=== PATIENT | male | born 1960 | race Caucasian/White ===

== ENCOUNTER → 2018-05-12 | Outpatient (CLI) | payer OTHER ==
[~2018-05-12] MED LIST: ALBUTEROL2.5 MG/3 M INH; BACTRIM DS TAB1 EACH PO; CEFDINIR300 MG PO; CIPRO500 MG PO; COZAAR 25 MG TA25 M1 PO; DIABETA 5MG TABL5 MG PO; DUONEB 2.5-0.5 M3 ML INH; FLOMAX0.4 MG PO; GLYBURIDE 2.52.5 MG PO; GLYBURIDE 5 MG T5 M1 PO; HYDROCHLOROTHIA25 M2 PO; LEVAQUIN 500 M500 M1 PO; LEVEMIR SUBQ; LORTAB 5-325 M1 EACH PO; LOSARTAN-HCTZ1 EAC1 PO; MUCINEX600 MG PO; PAXIL10 MG; PREDNISONE 20 M20 MG PO; PROTONIX40 M1 PO; PULMICORT0.5 MG/2 M INH; SINGULAIR 10 MG10 M1 PO; SYMBICORT80 MCG/4.1 INH; VANCOMYCIN1.5 GM/253 IV; VENTOLIN HFA 1818 GM INH; ZYVOX600 MG PO
== END ==
LOC: M.WC 08:26
DX: E11.621 Type 2 diabetes mellitus with foot ulcer (principal); L97.521 Non-pressure chronic ulcer of other part of left foot limited to breakdown of skin; L02.416 Cutaneous abscess of left lower limb; E11.36 Type 2 diabetes mellitus with diabetic cataract; E11.65 Type 2 diabetes mellitus with hyperglycemia; I10 Essential (primary) hypertension; L84 Corns and callosities; E66.9 Obesity, unspecified; F17.220 Nicotine dependence, chewing tobacco, uncomplicated; Z68.42 Body mass index [BMI] 45.0-49.9, adult

== ENCOUNTER 2018-05-19 01:51 | Inpatient (IN) | payer OTHER ==
[~2018-05-19] VITALS: Ht 203.2 cm; Wt 188.2 kg
[~2018-05-19 01:51] MED LIST changes: -BACTRIM DS TAB1 EACH PO; -CIPRO500 MG PO; -GLYBURIDE 5 MG T5 M1 PO; -ZYVOX600 MG PO
[2018-05-19 12:15] VITALS: BP 128/68
[2018-05-19 13:59] LABS: HEMATOCRIT 46.6 % (42.0-52.0); HEMOGLOBIN 15.7 gm/dL (14.0-18.0); MCH 32.3 pg (26.0-34.0); MCHC 33.7 g/dL (28.0-37.0); MCV 95.8 fL (80.0-100.0); RBC 4.87 mil/uL (4.50-6.00); RDW-CV 13.5 % (10.5-14.5); WBC 13.4 thou/uL (4.0-11.0)
[2018-05-19 14:11] LABS: CALCIUM 9.4 mg/dL (8.5-10.1); CREATININE 1.3 mg/dL (0.6-1.3); POTASSIUM 4.2 mmol/L (3.5-5.1)
[2018-05-19 14:16] LABS: ALBUMIN 3.1 g/dL (3.4-5.0); TOTAL BILIRUBIN 0.2 mg/dL (<0.1-1.0); TOTAL PROTEIN 7.5 g/dL (6.4-8.2)
--- NOTE | 2018-05-19 14:38 | NUR ---
MET WITH PT TO DISCUSS HOME SITUATION/DC PLANNING. PT LIVES WITH , IS NORMALLY INDEPENDENT AND ACTIVE. HAS NEBULIZER AT HOME. PT STATES HE'S BEEN DEALING WITH THIS WOUND FOR ABOUT A WEEK, HAS HX OF WOUND AND MRSA IN PAST. HAS DONE HOME IV ANTIBX AND IS OPEN TO DOING THAT AGAIN IF NEEDED. USES [facility] FOR HH AND [facility] FOR IV MEDS AND SUPPLIES. CM TO FOLLOW AND ASSIST
[2018-05-19 17:04] VITALS: BP 107/62
[2018-05-19] MEDS ORDERED: GLYBURIDE 5 MG T5 M1 PO (17:37)
[2018-05-19] MEDS ORDERED: BACTRIM DS TAB1 EACH PO (17:40)
[2018-05-19 20:10] VITALS: BP 130/67
[2018-05-20 04:17] LABS: ABSOLUTE BASOPHILS 0.1 thou/uL (0.0-0.2); ABSOLUTE EOSINOPHILS 0.3 thou/uL (0.0-0.7); ABSOLUTE LYMPHOCYTES 2.5 thou/uL (0.8-5.3); ABSOLUTE MONOCYTES 0.6 thou/uL (0.0-1.2); ABSOLUTE NEUTROPHILS 8.8 thou/uL (1.6-8.1); BASOPHILS 0.6 %; EOSINOPHILS 2.5 %; HEMATOCRIT 45.7 % (42.0-52.0); HEMOGLOBIN 15.3 gm/dL (14.0-18.0); LYMPHOCYTES 20.2 %; MCH 32.2 pg (26.0-34.0); MCHC 33.5 g/dL (28.0-37.0); MCV 95.9 fL (80.0-100.0); MONOCYTES 4.9 %; MPV 7.9 fl. (7.2-11.1); NUCLEATED RBCS 0 /100WBC; PLATELET COUNT* 320 thou/uL (150-400); POLYS 71.8 %; RBC 4.76 mil/uL (4.50-6.00); RDW-CV 13.6 % (10.5-14.5); WBC 12.3 thou/uL (4.0-11.0)
[2018-05-20 04:36] LABS: CALCIUM 8.8 mg/dL (8.5-10.1); CREATININE 1.3 mg/dL (0.6-1.3); POTASSIUM 4.5 mmol/L (3.5-5.1)
[2018-05-20 08:00] VITALS: BP 122/60
[2018-05-20 10:03] VITALS: BP 130/67
[2018-05-20 10:37] VITALS: BP 116/80
--- NOTE | 2018-05-20 13:52 | NUR ---
Pt back in room post I&D. Pt to dc with wound vac, no HH needed at this time. Anticipate dc either later tonight or tomorrow d/t nausea. Pt drove himself to the hospital.
[2018-05-20 15:35] VITALS: BP 116/80
[2018-05-20 16:25] VITALS: BP 131/66
[2018-05-20] MEDS ORDERED: ZYVOX600 MG PO (16:33)
[2018-05-20] MEDS ORDERED: CIPRO500 MG PO (16:34)
--- NOTE | 2018-05-20 18:59 | NUR ---
PATIENT A&OX4, ROOM AIR, IV RIGHT FOREARM FLUIDS INFUSSING. UP AD JALEN, STEADY GAIT. PATIENT HAD SURGERY I&D TO BACK OF LEFT THIGH. PATIENT ARRIVED BACK ON FLOOR FROM SURGERY AT 1340 VIA BED. PATIENT WAS ON 3L O2 POST OP, DECREASED BACK TO ROOM AIR. PATIENT NAUSOUS AFTER SURGERY. RELEIF NOTED AT 1430. PATEINT ABLE TO TOLERATE CLEAR LIQUIDS, ADVANCED TO SOLID FOODS. TOLERATING WELL. YUE WOUND VAC TO BACK OF LEFT THIGH, DRSG C/D/I. INSTRUCTED ON HOW TO CHANGED IF NEEDED AND TO FOLLOW UP WITH F/U APTS. NO C/O PAIN. PATIENT DISCHARGED. CALLED IN PRESCRIPTIONS. REVIEWED DISCHARGE, VERBALIZES UNDERSTANDING. ALL QUESTIONS AND CONCERNS ANSWERED. PATIENT LEFT UNIT AT 1850 VIA W/C WITH SPOUSE AND ALL BELONGIGNS, NOTHING LEFT BEHIND. NO OTHER CONCERNS AT THIS TIME. APPROPRIATE AND COOPRATIVE WITH CARE.
[2018-05-20 19:11] LABS: GLYCOHEMOGLOBIN (HGB A1C) 9.9 % (4.8-5.6)
--- NOTE | 2018-05-21 12:23 | OP ---
[facility] [address] [place] [address] OPERATIVE REPORT Name: BOBBY MOORE Room: [address] IN ..#: [id number] Admission: 05/19/18 Attend Phys: Akhil Flynn MD Discharge: 05/20/18 Date of : 60 Report #: [id number] THIS REPORT FOR: //name// CC: Akhil Felder [facility] DATE OF SERVICE: 05/20/2018 PREOPERATIVE DIAGNOSIS: Necrotizing abscess, left posterior thigh. POSTOPERATIVE DIAGNOSIS: Necrotizing abscess, left posterior thigh. OPERATIVE PROCEDURE: 1. Excisional debridement down to subcutaneous and including fat of necrotic skin and fat, dimensions 3 x 2.5 x 1 cm. 2. Application of negative pressure wound therapy device or YUE. ANESTHESIA: Laryngeal mask with 0.5% Marcaine infiltrated into the wound site. DESCRIPTION OF PROCEDURE: The patient was placed under laryngeal mask anesthesia and the patient's left posterior thigh was placed in stirrups and elevated and the site of wound was prepped and draped in a sterile fashion. A timeout was taken. Antibiotics were given. I began by sharply excising the necrotic skin and fat with pickups and a #15 scalpel blade. I dissected into and debrided out necrotic skin and fat and widened the wound dimensions to 3 x 2.5 x 1 cm. I then irrigated the wound with copious amounts of saline. There was no purulence encountered. Tissue was sent for culture. I then after applying cautery to the bleeding sites and pressure, 2 strips of Aquacel sheath that were cut in squares and laid into the wound bed and packed into the wound and then a 4 x 8 negative pressure device YUE was placed under negative pressure sealing the wound ending the operative procedure. Estimated blood loss 10 mL. Sponge, instrument counts correct. Specimen to culture. The patient was taken off laryngeal mask and returned to recovery in stable condition. <ELECTRONICALLY SIGNED> By: Zeenat Greene MD 05/21/18 1223 1224 [id number] Greene MD /nt
--- NOTE | 2018-05-29 14:47 | CON ---
[address] [address] CONSULTATION Name: BOBBY MOORE Room: [address] IN ..#: [id number] Admission: 05/19/18 Attend Phys: Akhil Flynn MD Discharge: 05/20/18 Date of : 60 Report #: [id number] THIS REPORT FOR: //name// CC: Akhil Vannton DATE OF SERVICE: 05/20/2018 INFECTIOUS DISEASE CONSULTATION REASON FOR CONSULTATION: Left thigh wound infection. HISTORY OF PRESENT ILLNESS: The patient is a 57-year-old underlying history of diabetes and morbid obesity, who noted a pustular lesion to his posterior left thigh approximately 2 weeks ago. He expressed purulent material from this. This continued to progress and he was seen in the outpatient clinic on 05/12/2018 where cultures were obtained revealing MRSA and Pseudomonas aeruginosa. He has had a previous history of MRSA furunculosis. No fever, chills or sweats. He does not monitor his blood glucose levels. He is on oral hypoglycemics. No other skin lesions were noted. No fever, chills or sweats. He has persistent pain and the wound progressed in size and he was taken to the operating room today for surgical debridement. At the time of surgery, there was no abscess evident. He had necrotic tissue and fat that was excised and external drainage device was placed. REVIEW OF SYSTEMS: Denies any other skin issues. No weight loss. No cardiopulmonary, GI or complaints. No other neurologic issues. ALLERGIES: MORPHINE AND CODEINE. MEDICATIONS: As noted on his MAR, now on ceftazidime and vancomycin. 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 FAMILY HISTORY: Noncontributory. SOCIAL HISTORY: Past smoker, no significant alcohol intake. PHYSICAL EXAMINATION: VITAL SIGNS: He is afebrile, hemodynamically stable. GENERAL: He is alert and cooperative and pleasant, in no acute distress. HEENT: Unremarkable. Mouth unremarkable. NECK: Supple. He has no adenopathy. [place] [address] CONSULTATION Name: BOBBY MOORE Room: [address]#: [id number] Admission: 05/19/18 Attend Phys: Akhil Flynn MD Discharge: 05/20/18 Date of : 60 Report #: [id number] CHEST: Clear. HEART: Regular without murmur. ABDOMEN: Obese, soft and nontender. No hepatosplenomegaly or mass appreciated. External genitalia unremarkable. EXTREMITIES: Left thigh wound surgical site with an external drainage device in place. No surrounding cellulitis. No significant peripheral edema. NEUROLOGIC: Nonfocal. LABORATORY STUDIES: From 05/12/2018, culture of the wound revealed carbapenem-resistant Pseudomonas aeruginosa 1+ that was otherwise susceptible to all drugs tested except for tetracycline and 4+ MRSA. Vancomycin trough was 13. Blood cultures are negative to date. Hemoglobin 15, WBC 12, platelet count 320,000. Differential unremarkable. Sodium 135, potassium 4.5, creatinine 1.3. Liver function tests normal. Blood glucose was in the 200s. Chest x-ray is clear. IMPRESSION: A 57-year-old with soft tissue infection, left posterior thigh due to methicillin-resistant Staphylococcus aureus. Also, has a component of pseudomonas involvement as well. I do suspect with his history that methicillin-resistant Staphylococcus aureus is a predominant pathogen here. The wound is now packed with a negative pressure device in place. 1. Diabetes. 2. Morbid obesity. 3. Leukocytosis. RECOMMENDATION: We will continue with antibiotic program including Zyvox and ciprofloxacin. The patient will then follow up for further wound care with Dr. Ferguson next week. We will prescribe 10 days of antibiotic therapy leading up to his followup visit. The patient will follow up with Dr. Ornelas for further wound care. Would also repeat CBC and BMP next week. Duration of antibiotics typically would be 7-14 days. Given these organisms, I would lean toward 14 until the wound bed is granulating in nicely and no further significant drainage is evident. <ELECTRONICALLY SIGNED> By: Tim Aguilar MD 05/29/18 1447 1526 [id number] Aguilar MD /nt
--- NOTE | 2018-06-02 17:11 | CON ---
[address] [address] CONSULTATION Name: BOBBY MOORE Room: [address]#: [id number] Admission: 05/19/18 Attend Phys: Akhil Flynn MD Discharge: 05/20/18 Date of : 60 Report #: [id number] THIS REPORT FOR: //name// [facility]: [facility] DATE OF SERVICE: 05/19/2018 CHIEF COMPLAINT: Left leg abscess. HISTORY OF PRESENT ILLNESS: This is a 57-year-old man with morbid obesity who [facility] for a left chronic thigh wound. He was seen at the [facility] today. They noticed that his leg was much more erythematous and there was some induration around his wound. He was therefore sent to be admitted. He has been placed on IV antibiotics. He has continued pain at the site. The pain is sharp, stabbing, burning. PAST MEDICAL HISTORY: Morbid obesity, chronic left thigh wound. PAST SURGICAL HISTORY: He has had incision and drainage of left scrotal abscess. SOCIAL HISTORY: No tobacco or alcohol use. ALLERGIES: MORPHINE AND CODEINE. MEDICATIONS: Include hydrocodone. REVIEW OF SYSTEMS: A 12-point review of systems negative except for listed in HPI. PHYSICAL EXAMINATION: GENERAL: He is awake, alert, in no acute distress. HEENT: Extraocular muscles intact. Sclerae without icterus. NECK: Supple. CARDIOVASCULAR: Regular rate and rhythm. CHEST: Fair movement bilaterally. ABDOMEN: Soft, obese. MUSCULOSKELETAL: Left thigh demonstrates an approximately 2 x 1.5 x 0.5 cm chronic wound. There is slough at the base. It is somewhat indurated. NEUROLOGIC: Grossly intact. SKIN: Without rash or jaundice. ASSESSMENT AND PLAN: A 57-year-old man with a left leg chronic wound. I agree with IV antibiotics. I am going to get an ultrasound to see if there is a deeper abscess. If there is, he [place] [address] CONSULTATION Name: BOBBY MOORE Room: [address] IN ..#: [id number] Admission: 05/19/18 Attend Phys: Akhil Flynn MD Discharge: 05/20/18 Date of : 60 Report #: [id number] Thank you for asking me to consult on this patient. We will follow along with you. <ELECTRONICALLY SIGNED> By: Hever Greene MD 06/02/18 1711 1316 [id number] Greene MD /nt
== END 2018-05-20 18:50 | disposition still patient (30) | DRG 571 ==
LOC: M.WC 01:51 → M.3W 11:56
PROVIDERS: ADMIT Internal Medicine
PROC: 0JBM0ZZ Excision of Left Upper Leg Subcutaneous Tissue and Fascia, Open Approach (ICD-10-PCS; principal; 2018-05-20)
DX: L02.416 Cutaneous abscess of left lower limb (principal); R65.10 Systemic inflammatory response syndrome (SIRS) of non-infectious origin without acute organ dysfunction; Z68.42 Body mass index [BMI] 45.0-49.9, adult; L03.116 Cellulitis of left lower limb; E11.9 Type 2 diabetes mellitus without complications; I10 Essential (primary) hypertension; E66.01 Morbid (severe) obesity due to excess calories; D72.829 Elevated white blood cell count, unspecified; J45.909 Unspecified asthma, uncomplicated; F17.210 Nicotine dependence, cigarettes, uncomplicated; B95.62 Methicillin resistant Staphylococcus aureus infection as the cause of diseases classified elsewhere; Z88.6 Allergy status to analgesic agent

== ENCOUNTER → 2018-05-22 | Outpatient (CLI) | payer OTHER ==
[~2018-05-22] MED LIST changes: +BACTRIM DS TAB1 EACH PO; +CIPRO500 MG PO; +GLYBURIDE 5 MG T5 M1 PO; +ZYVOX600 MG PO
== END ==
LOC: M.WC 13:30
DX: T81.89XA Other complications of procedures, not elsewhere classified, initial encounter (principal); L02.416 Cutaneous abscess of left lower limb; E11.36 Type 2 diabetes mellitus with diabetic cataract; E11.65 Type 2 diabetes mellitus with hyperglycemia; I10 Essential (primary) hypertension; E66.9 Obesity, unspecified; J45.40 Moderate persistent asthma, uncomplicated; F17.210 Nicotine dependence, cigarettes, uncomplicated; Z68.42 Body mass index [BMI] 45.0-49.9, adult; Y92.89 Other specified places as the place of occurrence of the external cause; Y83.8 Other surgical procedures as the cause of abnormal reaction of the patient, or of later complication, without mention of misadventure at the time of the procedure

== ENCOUNTER → 2018-05-24 | Outpatient (CLI) | payer OTHER | LOC: M.WC 11:53 | DX: T81.89XD Other complications of procedures, not elsewhere classified, subsequent encounter (principal); E11.621 Type 2 diabetes mellitus with foot ulcer; L97.521 Non-pressure chronic ulcer of other part of left foot limited to breakdown of skin; E11.36 Type 2 diabetes mellitus with diabetic cataract; L84 Corns and callosities; I10 Essential (primary) hypertension; E66.9 Obesity, unspecified; J45.40 Moderate persistent asthma, uncomplicated; F17.210 Nicotine dependence, cigarettes, uncomplicated; Z68.42 Body mass index [BMI] 45.0-49.9, adult; Y83.8 Other surgical procedures as the cause of abnormal reaction of the patient, or of later complication, without mention of misadventure at the time of the procedure ==

== ENCOUNTER → 2018-05-26 | Outpatient (CLI) | payer OTHER | LOC: M.WC 01:48 | DX: T81.89XD Other complications of procedures, not elsewhere classified, subsequent encounter (principal); E11.621 Type 2 diabetes mellitus with foot ulcer; L97.521 Non-pressure chronic ulcer of other part of left foot limited to breakdown of skin; E11.36 Type 2 diabetes mellitus with diabetic cataract; L84 Corns and callosities; I10 Essential (primary) hypertension; J45.909 Unspecified asthma, uncomplicated; F17.210 Nicotine dependence, cigarettes, uncomplicated; Z68.42 Body mass index [BMI] 45.0-49.9, adult; Y83.8 Other surgical procedures as the cause of abnormal reaction of the patient, or of later complication, without mention of misadventure at the time of the procedure ==

== ENCOUNTER → 2018-05-29 | Outpatient (CLI) | payer OTHER | LOC: M.WC 00:55 | DX: T81.89XD Other complications of procedures, not elsewhere classified, subsequent encounter (principal); E11.36 Type 2 diabetes mellitus with diabetic cataract; I10 Essential (primary) hypertension; E66.9 Obesity, unspecified; J45.40 Moderate persistent asthma, uncomplicated; F17.200 Nicotine dependence, unspecified, uncomplicated; Z68.42 Body mass index [BMI] 45.0-49.9, adult; Y83.8 Other surgical procedures as the cause of abnormal reaction of the patient, or of later complication, without mention of misadventure at the time of the procedure ==

== ENCOUNTER → 2018-05-31 | Outpatient (CLI) | payer OTHER | LOC: M.WC 04:11 | DX: T81.89XD Other complications of procedures, not elsewhere classified, subsequent encounter (principal); E11.36 Type 2 diabetes mellitus with diabetic cataract; I10 Essential (primary) hypertension; E66.9 Obesity, unspecified; J45.909 Unspecified asthma, uncomplicated; F17.200 Nicotine dependence, unspecified, uncomplicated; Z68.42 Body mass index [BMI] 45.0-49.9, adult; Y83.8 Other surgical procedures as the cause of abnormal reaction of the patient, or of later complication, without mention of misadventure at the time of the procedure ==

== ENCOUNTER → 2018-06-02 | Outpatient (CLI) | payer OTHER | LOC: M.WC 01:22 | DX: T81.89XD Other complications of procedures, not elsewhere classified, subsequent encounter (principal); E11.622 Type 2 diabetes mellitus with other skin ulcer; L97.121 Non-pressure chronic ulcer of left thigh limited to breakdown of skin; E11.36 Type 2 diabetes mellitus with diabetic cataract; E11.65 Type 2 diabetes mellitus with hyperglycemia; I10 Essential (primary) hypertension; E66.9 Obesity, unspecified; J45.40 Moderate persistent asthma, uncomplicated; F17.220 Nicotine dependence, chewing tobacco, uncomplicated; Z68.42 Body mass index [BMI] 45.0-49.9, adult; Y83.8 Other surgical procedures as the cause of abnormal reaction of the patient, or of later complication, without mention of misadventure at the time of the procedure ==

== ENCOUNTER → 2018-06-05 | Outpatient (CLI) | payer OTHER | LOC: M.WC 01:02 | DX: T81.89XD Other complications of procedures, not elsewhere classified, subsequent encounter (principal); E11.36 Type 2 diabetes mellitus with diabetic cataract; I10 Essential (primary) hypertension; E66.9 Obesity, unspecified; J45.40 Moderate persistent asthma, uncomplicated; F17.220 Nicotine dependence, chewing tobacco, uncomplicated; F17.200 Nicotine dependence, unspecified, uncomplicated; Y83.8 Other surgical procedures as the cause of abnormal reaction of the patient, or of later complication, without mention of misadventure at the time of the procedure ==

== ENCOUNTER → 2018-06-07 | Outpatient (CLI) | payer OTHER | LOC: M.WC 03:23 | DX: T81.89XD Other complications of procedures, not elsewhere classified, subsequent encounter (principal); E11.36 Type 2 diabetes mellitus with diabetic cataract; I10 Essential (primary) hypertension; E66.9 Obesity, unspecified; J45.909 Unspecified asthma, uncomplicated; F17.220 Nicotine dependence, chewing tobacco, uncomplicated; Z68.42 Body mass index [BMI] 45.0-49.9, adult; Y83.8 Other surgical procedures as the cause of abnormal reaction of the patient, or of later complication, without mention of misadventure at the time of the procedure ==

== ENCOUNTER → 2018-06-09 | Outpatient (CLI) | payer OTHER | LOC: M.WC 02:00 | DX: T81.89XD Other complications of procedures, not elsewhere classified, subsequent encounter (principal); E11.622 Type 2 diabetes mellitus with other skin ulcer; L97.121 Non-pressure chronic ulcer of left thigh limited to breakdown of skin; E11.65 Type 2 diabetes mellitus with hyperglycemia; E11.36 Type 2 diabetes mellitus with diabetic cataract; I10 Essential (primary) hypertension; E66.9 Obesity, unspecified; J45.40 Moderate persistent asthma, uncomplicated; F17.220 Nicotine dependence, chewing tobacco, uncomplicated; Z68.42 Body mass index [BMI] 45.0-49.9, adult; Y83.8 Other surgical procedures as the cause of abnormal reaction of the patient, or of later complication, without mention of misadventure at the time of the procedure ==

== ENCOUNTER → 2018-06-13 | Outpatient (CLI) | payer OTHER | LOC: M.WC 05:11 | DX: T81.89XD Other complications of procedures, not elsewhere classified, subsequent encounter (principal); E11.621 Type 2 diabetes mellitus with foot ulcer; L97.521 Non-pressure chronic ulcer of other part of left foot limited to breakdown of skin; E11.36 Type 2 diabetes mellitus with diabetic cataract; E11.65 Type 2 diabetes mellitus with hyperglycemia; E66.9 Obesity, unspecified; I10 Essential (primary) hypertension; J45.40 Moderate persistent asthma, uncomplicated; F17.220 Nicotine dependence, chewing tobacco, uncomplicated; Z68.42 Body mass index [BMI] 45.0-49.9, adult; Y83.8 Other surgical procedures as the cause of abnormal reaction of the patient, or of later complication, without mention of misadventure at the time of the procedure ==

== ENCOUNTER → 2018-06-16 | Outpatient (CLI) | payer OTHER | LOC: M.WC 03:44 | DX: T81.89XD Other complications of procedures, not elsewhere classified, subsequent encounter (principal); E11.36 Type 2 diabetes mellitus with diabetic cataract; E66.9 Obesity, unspecified; I10 Essential (primary) hypertension; J45.40 Moderate persistent asthma, uncomplicated; F17.220 Nicotine dependence, chewing tobacco, uncomplicated; Z68.42 Body mass index [BMI] 45.0-49.9, adult; Y83.8 Other surgical procedures as the cause of abnormal reaction of the patient, or of later complication, without mention of misadventure at the time of the procedure ==

== ENCOUNTER → 2018-06-23 | Outpatient (CLI) | payer OTHER | LOC: M.WC 02:08 | DX: T81.89XD Other complications of procedures, not elsewhere classified, subsequent encounter (principal); E11.36 Type 2 diabetes mellitus with diabetic cataract; E11.65 Type 2 diabetes mellitus with hyperglycemia; L02.416 Cutaneous abscess of left lower limb; I10 Essential (primary) hypertension; E66.9 Obesity, unspecified; J45.40 Moderate persistent asthma, uncomplicated; F17.220 Nicotine dependence, chewing tobacco, uncomplicated; Z68.42 Body mass index [BMI] 45.0-49.9, adult ==

== ENCOUNTER → 2018-06-30 | Outpatient (CLI) | payer OTHER | LOC: M.WC 11:00 | DX: E11.621 Type 2 diabetes mellitus with foot ulcer (principal); L97.501 Non-pressure chronic ulcer of other part of unspecified foot limited to breakdown of skin; L02.416 Cutaneous abscess of left lower limb; E11.36 Type 2 diabetes mellitus with diabetic cataract; E11.65 Type 2 diabetes mellitus with hyperglycemia; E66.9 Obesity, unspecified; I10 Essential (primary) hypertension; J45.40 Moderate persistent asthma, uncomplicated; F17.220 Nicotine dependence, chewing tobacco, uncomplicated; Z68.42 Body mass index [BMI] 45.0-49.9, adult ==

== ENCOUNTER → 2018-07-05 | Outpatient (CLI) | payer OTHER | LOC: M.WC 03:03 | DX: T81.89XD Other complications of procedures, not elsewhere classified, subsequent encounter (principal); E11.621 Type 2 diabetes mellitus with foot ulcer; L97.501 Non-pressure chronic ulcer of other part of unspecified foot limited to breakdown of skin; L02.416 Cutaneous abscess of left lower limb; E11.36 Type 2 diabetes mellitus with diabetic cataract; E11.65 Type 2 diabetes mellitus with hyperglycemia; E66.9 Obesity, unspecified; I10 Essential (primary) hypertension; J45.20 Mild intermittent asthma, uncomplicated; F17.220 Nicotine dependence, chewing tobacco, uncomplicated; Z68.42 Body mass index [BMI] 45.0-49.9, adult; Y83.8 Other surgical procedures as the cause of abnormal reaction of the patient, or of later complication, without mention of misadventure at the time of the procedure ==

== ENCOUNTER → 2018-07-07 | Outpatient (CLI) | payer OTHER | LOC: M.WC 02:56 | DX: T81.89XD Other complications of procedures, not elsewhere classified, subsequent encounter (principal); E11.621 Type 2 diabetes mellitus with foot ulcer; L97.501 Non-pressure chronic ulcer of other part of unspecified foot limited to breakdown of skin; L02.416 Cutaneous abscess of left lower limb; E11.36 Type 2 diabetes mellitus with diabetic cataract; E11.65 Type 2 diabetes mellitus with hyperglycemia; E66.9 Obesity, unspecified; I10 Essential (primary) hypertension; J45.40 Moderate persistent asthma, uncomplicated; F17.220 Nicotine dependence, chewing tobacco, uncomplicated; Z68.42 Body mass index [BMI] 45.0-49.9, adult; Y83.8 Other surgical procedures as the cause of abnormal reaction of the patient, or of later complication, without mention of misadventure at the time of the procedure ==

== ENCOUNTER → 2018-07-12 | Outpatient (CLI) | payer OTHER | LOC: M.WC 11:00 | DX: T81.89XD Other complications of procedures, not elsewhere classified, subsequent encounter (principal); E11.621 Type 2 diabetes mellitus with foot ulcer; L97.521 Non-pressure chronic ulcer of other part of left foot limited to breakdown of skin; E11.65 Type 2 diabetes mellitus with hyperglycemia; E11.36 Type 2 diabetes mellitus with diabetic cataract; E66.9 Obesity, unspecified; I10 Essential (primary) hypertension; J45.40 Moderate persistent asthma, uncomplicated; F17.220 Nicotine dependence, chewing tobacco, uncomplicated; Z68.42 Body mass index [BMI] 45.0-49.9, adult; Y83.8 Other surgical procedures as the cause of abnormal reaction of the patient, or of later complication, without mention of misadventure at the time of the procedure ==

== ENCOUNTER → 2018-07-21 | Outpatient (CLI) | payer OTHER | LOC: M.WC 11:00 | DX: T81.89XD Other complications of procedures, not elsewhere classified, subsequent encounter (principal); E11.621 Type 2 diabetes mellitus with foot ulcer; L97.521 Non-pressure chronic ulcer of other part of left foot limited to breakdown of skin; E11.36 Type 2 diabetes mellitus with diabetic cataract; E11.65 Type 2 diabetes mellitus with hyperglycemia; E66.9 Obesity, unspecified; I10 Essential (primary) hypertension; J45.40 Moderate persistent asthma, uncomplicated; F17.220 Nicotine dependence, chewing tobacco, uncomplicated; Z68.42 Body mass index [BMI] 45.0-49.9, adult; Y83.8 Other surgical procedures as the cause of abnormal reaction of the patient, or of later complication, without mention of misadventure at the time of the procedure ==

== ENCOUNTER → 2018-07-27 | Outpatient (CLI) | payer OTHER | LOC: M.WC 05:00 | DX: T81.89XD Other complications of procedures, not elsewhere classified, subsequent encounter (principal); E11.36 Type 2 diabetes mellitus with diabetic cataract; E66.9 Obesity, unspecified; E11.65 Type 2 diabetes mellitus with hyperglycemia; I10 Essential (primary) hypertension; J45.40 Moderate persistent asthma, uncomplicated; F17.220 Nicotine dependence, chewing tobacco, uncomplicated; Z68.42 Body mass index [BMI] 45.0-49.9, adult; Y83.8 Other surgical procedures as the cause of abnormal reaction of the patient, or of later complication, without mention of misadventure at the time of the procedure ==

== ENCOUNTER → 2018-07-28 | Outpatient (CLI) | payer OTHER ==
[2018-07-28 10:35] LABS: POTASSIUM 4.4 mmol/L (3.5-5.1)
== END ==
LOC: M.LAB 04:54
PROVIDERS: Anesthesiology
DX: Z01.812 Encounter for preprocedural laboratory examination (principal); E11.9 Type 2 diabetes mellitus without complications; I10 Essential (primary) hypertension

== ENCOUNTER → 2018-08-04 | Outpatient (CLI) | payer OTHER | LOC: M.WC 08-03 11:00 | DX: T81.89XD Other complications of procedures, not elsewhere classified, subsequent encounter (principal); E11.621 Type 2 diabetes mellitus with foot ulcer; L97.521 Non-pressure chronic ulcer of other part of left foot limited to breakdown of skin; E11.65 Type 2 diabetes mellitus with hyperglycemia; E11.36 Type 2 diabetes mellitus with diabetic cataract; E66.9 Obesity, unspecified; I10 Essential (primary) hypertension; J45.40 Moderate persistent asthma, uncomplicated; F17.220 Nicotine dependence, chewing tobacco, uncomplicated; Z68.42 Body mass index [BMI] 45.0-49.9, adult; Y83.8 Other surgical procedures as the cause of abnormal reaction of the patient, or of later complication, without mention of misadventure at the time of the procedure ==

== ENCOUNTER → 2019-10-02 | Outpatient (CLI) | payer OTHER ==
[2019-10-02 09:36] LABS: ABSOLUTE BASOPHILS 0.1 thou/uL (0.0-0.2); ABSOLUTE EOSINOPHILS 0.3 thou/uL (0.0-0.7); ABSOLUTE LYMPHOCYTES 1.9 thou/uL (0.8-5.3); ABSOLUTE MONOCYTES 0.4 thou/uL (0.0-1.2); ABSOLUTE NEUTROPHILS 8.1 thou/uL (1.6-8.1); BASOPHILS 1.1 %; EOSINOPHILS 2.5 %; HEMATOCRIT 46.2 % (42.0-52.0); HEMOGLOBIN 16.1 gm/dL (14.0-18.0); LYMPHOCYTES 17.5 %; MCH 32.7 pg (26.0-34.0); MCHC 34.8 g/dL (28.0-37.0); MCV 94.1 fL (80.0-100.0); MONOCYTES 3.9 %; MPV 7.7 fl. (7.2-11.1); NUCLEATED RBCS 0 /100WBC; PLATELET COUNT* 258 thou/uL (150-400); RBC 4.91 mil/uL (4.50-6.00); RDW-CV 13.4 % (10.5-14.5); WBC 10.8 thou/uL (4.0-11.0)
[2019-10-02 09:56] LABS: CALCIUM 9.1 mg/dL (8.5-10.1); CREATININE 1.3 mg/dL (0.6-1.3); POTASSIUM 4.2 mmol/L (3.5-5.1)
[2019-10-02 10:42] LABS: ESR (SEDRATE) 29 mm/hr (0-20)
[2019-10-03 02:07] LABS: GLYCOHEMOGLOBIN (HGB A1C) 11.8 % (4.8-5.6)
== END ==
LOC: M.WC 07:57
PROVIDERS: Emergency Medicine Undersea and Hyperbaric Medicine
DX: E11.621 Type 2 diabetes mellitus with foot ulcer (principal); L97.511 Non-pressure chronic ulcer of other part of right foot limited to breakdown of skin; L97.522 Non-pressure chronic ulcer of other part of left foot with fat layer exposed; L84 Corns and callosities; E66.9 Obesity, unspecified; E11.36 Type 2 diabetes mellitus with diabetic cataract; I10 Essential (primary) hypertension; J45.909 Unspecified asthma, uncomplicated; F17.200 Nicotine dependence, unspecified, uncomplicated; Z68.42 Body mass index [BMI] 45.0-49.9, adult

== ENCOUNTER → 2019-10-04 | Outpatient (CLI) | payer OTHER | LOC: M.MRI 07:03 | DX: L97.529 Non-pressure chronic ulcer of other part of left foot with unspecified severity (principal) ==

== ENCOUNTER → 2019-10-09 | Outpatient (CLI) | payer OTHER | LOC: M.WC 04:52 | DX: E11.621 Type 2 diabetes mellitus with foot ulcer (principal); L97.522 Non-pressure chronic ulcer of other part of left foot with fat layer exposed; L97.511 Non-pressure chronic ulcer of other part of right foot limited to breakdown of skin; L84 Corns and callosities; E11.36 Type 2 diabetes mellitus with diabetic cataract; E66.9 Obesity, unspecified; I10 Essential (primary) hypertension; J45.909 Unspecified asthma, uncomplicated; F17.200 Nicotine dependence, unspecified, uncomplicated; Z68.42 Body mass index [BMI] 45.0-49.9, adult ==

== ENCOUNTER → 2019-10-16 | Outpatient (CLI) | payer OTHER | LOC: M.WC 05:29 | DX: E11.621 Type 2 diabetes mellitus with foot ulcer (principal); L97.522 Non-pressure chronic ulcer of other part of left foot with fat layer exposed; L97.511 Non-pressure chronic ulcer of other part of right foot limited to breakdown of skin; L84 Corns and callosities; E11.36 Type 2 diabetes mellitus with diabetic cataract; E66.9 Obesity, unspecified; I10 Essential (primary) hypertension; J45.909 Unspecified asthma, uncomplicated; F17.200 Nicotine dependence, unspecified, uncomplicated; Z68.42 Body mass index [BMI] 45.0-49.9, adult ==

== ENCOUNTER → 2019-10-23 | Outpatient (CLI) | payer OTHER | LOC: M.WC 04:32 | DX: E11.621 Type 2 diabetes mellitus with foot ulcer (principal); L97.512 Non-pressure chronic ulcer of other part of right foot with fat layer exposed; L97.522 Non-pressure chronic ulcer of other part of left foot with fat layer exposed; L84 Corns and callosities; I10 Essential (primary) hypertension; E11.36 Type 2 diabetes mellitus with diabetic cataract; J45.909 Unspecified asthma, uncomplicated; E66.9 Obesity, unspecified; F17.290 Nicotine dependence, other tobacco product, uncomplicated; Z68.42 Body mass index [BMI] 45.0-49.9, adult; Z79.84 Long term (current) use of oral hypoglycemic drugs ==

== ENCOUNTER → 2019-10-30 | Outpatient (CLI) | payer OTHER | LOC: M.WC 09:30 | DX: E11.621 Type 2 diabetes mellitus with foot ulcer (principal); L97.512 Non-pressure chronic ulcer of other part of right foot with fat layer exposed; L97.522 Non-pressure chronic ulcer of other part of left foot with fat layer exposed; L84 Corns and callosities; E11.36 Type 2 diabetes mellitus with diabetic cataract; E66.9 Obesity, unspecified; J45.909 Unspecified asthma, uncomplicated; I10 Essential (primary) hypertension; F17.200 Nicotine dependence, unspecified, uncomplicated; Z68.42 Body mass index [BMI] 45.0-49.9, adult ==

== ENCOUNTER → 2019-11-01 | Outpatient (CLI) | payer OTHER ==
[2019-11-01 07:48] LABS: POTASSIUM 4.1 mmol/L (3.5-5.1)
== END ==
LOC: M.LAB 04:02
PROVIDERS: Anesthesiology
DX: E87.6 Hypokalemia (principal)

== ENCOUNTER → 2019-11-06 | Outpatient (CLI) | payer OTHER | LOC: M.WC 02:24 | DX: E11.621 Type 2 diabetes mellitus with foot ulcer (principal); L97.512 Non-pressure chronic ulcer of other part of right foot with fat layer exposed; L97.522 Non-pressure chronic ulcer of other part of left foot with fat layer exposed; L84 Corns and callosities; E11.36 Type 2 diabetes mellitus with diabetic cataract; E66.9 Obesity, unspecified; I10 Essential (primary) hypertension; J45.909 Unspecified asthma, uncomplicated; F17.200 Nicotine dependence, unspecified, uncomplicated; Z68.42 Body mass index [BMI] 45.0-49.9, adult ==

== ENCOUNTER → 2019-11-13 | Outpatient (CLI) | payer OTHER | LOC: M.WC 05:12 | DX: E11.621 Type 2 diabetes mellitus with foot ulcer (principal); L97.512 Non-pressure chronic ulcer of other part of right foot with fat layer exposed; L97.522 Non-pressure chronic ulcer of other part of left foot with fat layer exposed; L84 Corns and callosities; E11.36 Type 2 diabetes mellitus with diabetic cataract; E66.9 Obesity, unspecified; J45.909 Unspecified asthma, uncomplicated; I10 Essential (primary) hypertension; F17.200 Nicotine dependence, unspecified, uncomplicated; Z68.42 Body mass index [BMI] 45.0-49.9, adult ==

== ENCOUNTER → 2019-11-20 | Outpatient (CLI) | payer OTHER | LOC: M.WC 03:36 | DX: E11.621 Type 2 diabetes mellitus with foot ulcer (principal); L97.512 Non-pressure chronic ulcer of other part of right foot with fat layer exposed; L97.522 Non-pressure chronic ulcer of other part of left foot with fat layer exposed; L84 Corns and callosities; E11.36 Type 2 diabetes mellitus with diabetic cataract; E66.9 Obesity, unspecified; J45.909 Unspecified asthma, uncomplicated; I10 Essential (primary) hypertension; F17.200 Nicotine dependence, unspecified, uncomplicated; Z68.42 Body mass index [BMI] 45.0-49.9, adult ==

== ENCOUNTER → 2019-11-27 | Outpatient (CLI) | payer OTHER | LOC: M.WC 05:18 | DX: E11.621 Type 2 diabetes mellitus with foot ulcer (principal); L97.522 Non-pressure chronic ulcer of other part of left foot with fat layer exposed; L97.511 Non-pressure chronic ulcer of other part of right foot limited to breakdown of skin; L84 Corns and callosities; E11.36 Type 2 diabetes mellitus with diabetic cataract; E66.9 Obesity, unspecified; I10 Essential (primary) hypertension; J45.909 Unspecified asthma, uncomplicated; F17.200 Nicotine dependence, unspecified, uncomplicated; Z68.42 Body mass index [BMI] 45.0-49.9, adult ==

== ENCOUNTER → 2019-12-04 | Outpatient (CLI) | payer OTHER | LOC: M.WC 03:18 | DX: E11.621 Type 2 diabetes mellitus with foot ulcer (principal); L97.511 Non-pressure chronic ulcer of other part of right foot limited to breakdown of skin; L97.522 Non-pressure chronic ulcer of other part of left foot with fat layer exposed; L84 Corns and callosities; J45.909 Unspecified asthma, uncomplicated; I10 Essential (primary) hypertension; E11.36 Type 2 diabetes mellitus with diabetic cataract; E66.9 Obesity, unspecified; Z68.42 Body mass index [BMI] 45.0-49.9, adult; Z86.14 Personal history of Methicillin resistant Staphylococcus aureus infection; Z79.84 Long term (current) use of oral hypoglycemic drugs ==

== ENCOUNTER → 2019-12-11 | Outpatient (CLI) | payer OTHER | LOC: M.WC 04:35 | DX: E11.621 Type 2 diabetes mellitus with foot ulcer (principal); L97.512 Non-pressure chronic ulcer of other part of right foot with fat layer exposed; L97.522 Non-pressure chronic ulcer of other part of left foot with fat layer exposed; L84 Corns and callosities; E11.36 Type 2 diabetes mellitus with diabetic cataract; E66.9 Obesity, unspecified; I10 Essential (primary) hypertension; J45.909 Unspecified asthma, uncomplicated; F17.200 Nicotine dependence, unspecified, uncomplicated; Z68.42 Body mass index [BMI] 45.0-49.9, adult ==

== ENCOUNTER → 2019-12-18 | Outpatient (CLI) | payer OTHER | LOC: M.WC 03:56 | DX: E11.621 Type 2 diabetes mellitus with foot ulcer (principal); L97.511 Non-pressure chronic ulcer of other part of right foot limited to breakdown of skin; L97.522 Non-pressure chronic ulcer of other part of left foot with fat layer exposed; L84 Corns and callosities; F17.200 Nicotine dependence, unspecified, uncomplicated ==

== ENCOUNTER → 2019-12-25 | Outpatient (CLI) | payer OTHER | LOC: M.WC 04:28 | DX: E11.621 Type 2 diabetes mellitus with foot ulcer (principal); L97.511 Non-pressure chronic ulcer of other part of right foot limited to breakdown of skin; L97.522 Non-pressure chronic ulcer of other part of left foot with fat layer exposed; L84 Corns and callosities; E11.36 Type 2 diabetes mellitus with diabetic cataract; E66.9 Obesity, unspecified; J45.909 Unspecified asthma, uncomplicated; I10 Essential (primary) hypertension; F17.200 Nicotine dependence, unspecified, uncomplicated; Z68.42 Body mass index [BMI] 45.0-49.9, adult ==

== ENCOUNTER → 2020-01-01 | Outpatient (CLI) | payer OTHER | LOC: M.WC 04:38 | DX: E11.621 Type 2 diabetes mellitus with foot ulcer (principal); L97.522 Non-pressure chronic ulcer of other part of left foot with fat layer exposed; L97.511 Non-pressure chronic ulcer of other part of right foot limited to breakdown of skin; L84 Corns and callosities; E11.36 Type 2 diabetes mellitus with diabetic cataract; E66.9 Obesity, unspecified; I10 Essential (primary) hypertension; J45.909 Unspecified asthma, uncomplicated; F17.200 Nicotine dependence, unspecified, uncomplicated; Z68.42 Body mass index [BMI] 45.0-49.9, adult ==

== ENCOUNTER → 2020-01-08 | Outpatient (CLI) | payer OTHER | LOC: M.WC 03:48 | DX: E11.621 Type 2 diabetes mellitus with foot ulcer (principal); L97.522 Non-pressure chronic ulcer of other part of left foot with fat layer exposed; L97.511 Non-pressure chronic ulcer of other part of right foot limited to breakdown of skin; L84 Corns and callosities; E11.36 Type 2 diabetes mellitus with diabetic cataract; E66.9 Obesity, unspecified; I10 Essential (primary) hypertension; J45.909 Unspecified asthma, uncomplicated; F17.200 Nicotine dependence, unspecified, uncomplicated; Z68.42 Body mass index [BMI] 45.0-49.9, adult ==

== ENCOUNTER → 2020-01-15 | Outpatient (CLI) | payer OTHER | LOC: M.WC 04:23 | DX: E11.621 Type 2 diabetes mellitus with foot ulcer (principal); L97.522 Non-pressure chronic ulcer of other part of left foot with fat layer exposed; L97.511 Non-pressure chronic ulcer of other part of right foot limited to breakdown of skin; L84 Corns and callosities; E11.36 Type 2 diabetes mellitus with diabetic cataract; E66.9 Obesity, unspecified; I10 Essential (primary) hypertension; J45.909 Unspecified asthma, uncomplicated; F17.200 Nicotine dependence, unspecified, uncomplicated; Z68.42 Body mass index [BMI] 45.0-49.9, adult ==

== ENCOUNTER → 2020-01-22 | Outpatient (CLI) | payer OTHER | LOC: M.WC 04:42 | DX: E11.621 Type 2 diabetes mellitus with foot ulcer (principal); L97.522 Non-pressure chronic ulcer of other part of left foot with fat layer exposed; L97.511 Non-pressure chronic ulcer of other part of right foot limited to breakdown of skin; L84 Corns and callosities; E11.36 Type 2 diabetes mellitus with diabetic cataract; E66.9 Obesity, unspecified; I10 Essential (primary) hypertension; J45.909 Unspecified asthma, uncomplicated; F17.200 Nicotine dependence, unspecified, uncomplicated; Z68.42 Body mass index [BMI] 45.0-49.9, adult ==

== ENCOUNTER → 2020-01-29 | Outpatient (CLI) | payer OTHER | LOC: M.WC 04:52 | DX: E11.621 Type 2 diabetes mellitus with foot ulcer (principal); L97.522 Non-pressure chronic ulcer of other part of left foot with fat layer exposed; L97.511 Non-pressure chronic ulcer of other part of right foot limited to breakdown of skin; L84 Corns and callosities; E11.36 Type 2 diabetes mellitus with diabetic cataract; E66.9 Obesity, unspecified; I10 Essential (primary) hypertension; J45.909 Unspecified asthma, uncomplicated; F17.200 Nicotine dependence, unspecified, uncomplicated ==

== ENCOUNTER → 2020-02-05 | Outpatient (CLI) | payer OTHER | LOC: M.WC 01:37 | DX: E11.621 Type 2 diabetes mellitus with foot ulcer (principal); L97.522 Non-pressure chronic ulcer of other part of left foot with fat layer exposed; L97.511 Non-pressure chronic ulcer of other part of right foot limited to breakdown of skin; L84 Corns and callosities; E11.36 Type 2 diabetes mellitus with diabetic cataract; E66.9 Obesity, unspecified; I10 Essential (primary) hypertension; J45.909 Unspecified asthma, uncomplicated; F17.200 Nicotine dependence, unspecified, uncomplicated; Z68.42 Body mass index [BMI] 45.0-49.9, adult ==

== ENCOUNTER → 2020-02-12 | Outpatient (CLI) | payer OTHER | LOC: M.WC 04:25 | DX: E11.621 Type 2 diabetes mellitus with foot ulcer (principal); L97.511 Non-pressure chronic ulcer of other part of right foot limited to breakdown of skin; L97.522 Non-pressure chronic ulcer of other part of left foot with fat layer exposed; L84 Corns and callosities; E11.36 Type 2 diabetes mellitus with diabetic cataract; E66.9 Obesity, unspecified; I10 Essential (primary) hypertension; J45.909 Unspecified asthma, uncomplicated; F17.200 Nicotine dependence, unspecified, uncomplicated; Z68.42 Body mass index [BMI] 45.0-49.9, adult ==

== ENCOUNTER → 2020-02-19 | Outpatient (CLI) | payer OTHER | LOC: M.WC 04:32 | DX: E11.621 Type 2 diabetes mellitus with foot ulcer (principal); L97.522 Non-pressure chronic ulcer of other part of left foot with fat layer exposed; L97.511 Non-pressure chronic ulcer of other part of right foot limited to breakdown of skin; L84 Corns and callosities; E11.36 Type 2 diabetes mellitus with diabetic cataract; E66.9 Obesity, unspecified; I10 Essential (primary) hypertension; J45.909 Unspecified asthma, uncomplicated; F17.200 Nicotine dependence, unspecified, uncomplicated; Z68.42 Body mass index [BMI] 45.0-49.9, adult ==

== ENCOUNTER → 2020-02-26 | Outpatient (CLI) | payer OTHER | LOC: M.WC 03:06 | DX: E11.621 Type 2 diabetes mellitus with foot ulcer (principal); L97.522 Non-pressure chronic ulcer of other part of left foot with fat layer exposed; L97.511 Non-pressure chronic ulcer of other part of right foot limited to breakdown of skin; L84 Corns and callosities; E11.36 Type 2 diabetes mellitus with diabetic cataract; E66.9 Obesity, unspecified; I10 Essential (primary) hypertension; J45.909 Unspecified asthma, uncomplicated; F17.200 Nicotine dependence, unspecified, uncomplicated; Z68.42 Body mass index [BMI] 45.0-49.9, adult ==

== ENCOUNTER → 2020-03-04 | Outpatient (CLI) | payer OTHER | LOC: M.WC 05:20 | DX: E11.621 Type 2 diabetes mellitus with foot ulcer (principal); L97.522 Non-pressure chronic ulcer of other part of left foot with fat layer exposed; L97.511 Non-pressure chronic ulcer of other part of right foot limited to breakdown of skin; L84 Corns and callosities; E11.36 Type 2 diabetes mellitus with diabetic cataract; E66.9 Obesity, unspecified; I10 Essential (primary) hypertension; J45.909 Unspecified asthma, uncomplicated; F17.200 Nicotine dependence, unspecified, uncomplicated; Z68.42 Body mass index [BMI] 45.0-49.9, adult ==

== ENCOUNTER → 2020-03-11 | Outpatient (CLI) | payer OTHER | LOC: M.WC 04:54 | DX: E11.621 Type 2 diabetes mellitus with foot ulcer (principal); L97.522 Non-pressure chronic ulcer of other part of left foot with fat layer exposed; L97.511 Non-pressure chronic ulcer of other part of right foot limited to breakdown of skin; L84 Corns and callosities; E11.36 Type 2 diabetes mellitus with diabetic cataract; E66.9 Obesity, unspecified; I10 Essential (primary) hypertension; J45.909 Unspecified asthma, uncomplicated; F17.200 Nicotine dependence, unspecified, uncomplicated; Z68.42 Body mass index [BMI] 45.0-49.9, adult ==

== ENCOUNTER → 2020-03-18 | Outpatient (CLI) | payer OTHER | LOC: M.WC 04:15 | DX: E11.621 Type 2 diabetes mellitus with foot ulcer (principal); L97.522 Non-pressure chronic ulcer of other part of left foot with fat layer exposed; L97.511 Non-pressure chronic ulcer of other part of right foot limited to breakdown of skin; L84 Corns and callosities; J45.909 Unspecified asthma, uncomplicated; I10 Essential (primary) hypertension; E11.36 Type 2 diabetes mellitus with diabetic cataract; E66.9 Obesity, unspecified; F17.290 Nicotine dependence, other tobacco product, uncomplicated; Z86.14 Personal history of Methicillin resistant Staphylococcus aureus infection; Z79.84 Long term (current) use of oral hypoglycemic drugs; Z68.42 Body mass index [BMI] 45.0-49.9, adult ==

== ENCOUNTER → 2020-03-25 | Outpatient (CLI) | payer OTHER | LOC: M.WC 04:45 | DX: E11.621 Type 2 diabetes mellitus with foot ulcer (principal); L97.522 Non-pressure chronic ulcer of other part of left foot with fat layer exposed; L97.511 Non-pressure chronic ulcer of other part of right foot limited to breakdown of skin; L84 Corns and callosities; E11.36 Type 2 diabetes mellitus with diabetic cataract; E66.9 Obesity, unspecified; I10 Essential (primary) hypertension; J45.909 Unspecified asthma, uncomplicated; F17.200 Nicotine dependence, unspecified, uncomplicated; Z68.42 Body mass index [BMI] 45.0-49.9, adult ==

== ENCOUNTER → 2020-04-01 | Outpatient (CLI) | payer OTHER | LOC: M.WC 10:50 | PROVIDERS: ATTEND Emergency Medicine Undersea and Hyperbaric Medicine | DX: E11.621 Type 2 diabetes mellitus with foot ulcer (principal); L97.522 Non-pressure chronic ulcer of other part of left foot with fat layer exposed; L97.511 Non-pressure chronic ulcer of other part of right foot limited to breakdown of skin; L84 Corns and callosities; E11.36 Type 2 diabetes mellitus with diabetic cataract; E66.9 Obesity, unspecified; J45.909 Unspecified asthma, uncomplicated; I10 Essential (primary) hypertension; F17.200 Nicotine dependence, unspecified, uncomplicated; Z68.42 Body mass index [BMI] 45.0-49.9, adult ==

== ENCOUNTER → 2020-04-08 | Outpatient (CLI) | payer OTHER | LOC: M.WC 03:53 | PROVIDERS: ATTEND Emergency Medicine Undersea and Hyperbaric Medicine | DX: E11.621 Type 2 diabetes mellitus with foot ulcer (principal); L97.522 Non-pressure chronic ulcer of other part of left foot with fat layer exposed; L97.511 Non-pressure chronic ulcer of other part of right foot limited to breakdown of skin; L84 Corns and callosities; E11.36 Type 2 diabetes mellitus with diabetic cataract; E66.9 Obesity, unspecified; I10 Essential (primary) hypertension; J45.909 Unspecified asthma, uncomplicated; F17.200 Nicotine dependence, unspecified, uncomplicated; Z68.42 Body mass index [BMI] 45.0-49.9, adult ==

== ENCOUNTER → 2020-04-15 | Outpatient (CLI) | payer OTHER | LOC: M.WC 04:58 | PROVIDERS: ATTEND Emergency Medicine Undersea and Hyperbaric Medicine | DX: E11.621 Type 2 diabetes mellitus with foot ulcer (principal); L97.511 Non-pressure chronic ulcer of other part of right foot limited to breakdown of skin; L97.522 Non-pressure chronic ulcer of other part of left foot with fat layer exposed; L84 Corns and callosities; E11.36 Type 2 diabetes mellitus with diabetic cataract; E66.9 Obesity, unspecified; I10 Essential (primary) hypertension; J45.909 Unspecified asthma, uncomplicated; F17.200 Nicotine dependence, unspecified, uncomplicated; Z68.42 Body mass index [BMI] 45.0-49.9, adult ==

== ENCOUNTER → 2020-04-22 | Outpatient (CLI) | payer OTHER | LOC: M.WC 04:28 | PROVIDERS: ATTEND Emergency Medicine Undersea and Hyperbaric Medicine | DX: E11.621 Type 2 diabetes mellitus with foot ulcer (principal); L97.528 Non-pressure chronic ulcer of other part of left foot with other specified severity; L84 Corns and callosities; E11.36 Type 2 diabetes mellitus with diabetic cataract; E66.9 Obesity, unspecified; I10 Essential (primary) hypertension; J45.909 Unspecified asthma, uncomplicated; F17.200 Nicotine dependence, unspecified, uncomplicated; Z68.42 Body mass index [BMI] 45.0-49.9, adult ==

== ENCOUNTER → 2020-04-29 | Outpatient (CLI) | payer OTHER | LOC: M.WC 04:05 | PROVIDERS: ATTEND Emergency Medicine Undersea and Hyperbaric Medicine | DX: E11.621 Type 2 diabetes mellitus with foot ulcer (principal); L97.511 Non-pressure chronic ulcer of other part of right foot limited to breakdown of skin; L97.522 Non-pressure chronic ulcer of other part of left foot with fat layer exposed; E11.36 Type 2 diabetes mellitus with diabetic cataract; E66.9 Obesity, unspecified; I10 Essential (primary) hypertension; J45.909 Unspecified asthma, uncomplicated; F17.200 Nicotine dependence, unspecified, uncomplicated; Z68.42 Body mass index [BMI] 45.0-49.9, adult ==

== ENCOUNTER → 2020-05-06 | Outpatient (CLI) | payer OTHER | LOC: M.WC 04:29 | PROVIDERS: ATTEND Emergency Medicine Undersea and Hyperbaric Medicine | DX: E11.621 Type 2 diabetes mellitus with foot ulcer (principal); L97.511 Non-pressure chronic ulcer of other part of right foot limited to breakdown of skin; L97.522 Non-pressure chronic ulcer of other part of left foot with fat layer exposed; E11.36 Type 2 diabetes mellitus with diabetic cataract; E66.9 Obesity, unspecified; I10 Essential (primary) hypertension; J45.909 Unspecified asthma, uncomplicated; F17.200 Nicotine dependence, unspecified, uncomplicated; Z68.42 Body mass index [BMI] 45.0-49.9, adult ==

== ENCOUNTER → 2020-05-20 | Outpatient (CLI) | payer OTHER | LOC: M.WC 13:18 | PROVIDERS: ATTEND Emergency Medicine Undersea and Hyperbaric Medicine | DX: E11.621 Type 2 diabetes mellitus with foot ulcer (principal); L97.522 Non-pressure chronic ulcer of other part of left foot with fat layer exposed; E11.36 Type 2 diabetes mellitus with diabetic cataract; L84 Corns and callosities; E66.9 Obesity, unspecified; I10 Essential (primary) hypertension; J45.909 Unspecified asthma, uncomplicated; F17.200 Nicotine dependence, unspecified, uncomplicated; Z68.42 Body mass index [BMI] 45.0-49.9, adult ==

== ENCOUNTER → 2020-05-27 | Outpatient (CLI) | payer OTHER ==
[~2020-05-27] MED LIST changes: +CIPROFLOXIN HC2.5 M1 OPHTHALMIC; +KEFLEX500 M1 PO; +LOSARTAN POTAS100 MG PO; +ONGLYZA5 MG PO; +SYMBICORT160 MCG/4. INH
== END ==
LOC: M.MRI 02:25
PROVIDERS: ATTEND Emergency Medicine Undersea and Hyperbaric Medicine
DX: E11.621 Type 2 diabetes mellitus with foot ulcer (principal); L97.529 Non-pressure chronic ulcer of other part of left foot with unspecified severity

== ENCOUNTER → 2020-06-03 | Outpatient (CLI) | payer OTHER ==
[~2020-06-03] MED LIST changes: -CIPROFLOXIN HC2.5 M1 OPHTHALMIC; -KEFLEX500 M1 PO; -LOSARTAN POTAS100 MG PO; -ONGLYZA5 MG PO; -SYMBICORT160 MCG/4. INH
== END ==
LOC: M.WC 05:31
PROVIDERS: ATTEND Emergency Medicine Undersea and Hyperbaric Medicine
DX: E11.621 Type 2 diabetes mellitus with foot ulcer (principal); L97.522 Non-pressure chronic ulcer of other part of left foot with fat layer exposed; L84 Corns and callosities; J45.909 Unspecified asthma, uncomplicated; I10 Essential (primary) hypertension; E11.36 Type 2 diabetes mellitus with diabetic cataract; E66.9 Obesity, unspecified; F17.200 Nicotine dependence, unspecified, uncomplicated; Z68.42 Body mass index [BMI] 45.0-49.9, adult

== ENCOUNTER → 2020-06-10 | Outpatient (CLI) | payer OTHER | LOC: M.WC 03:17 | PROVIDERS: ATTEND Emergency Medicine Undersea and Hyperbaric Medicine | DX: E11.621 Type 2 diabetes mellitus with foot ulcer (principal); L97.511 Non-pressure chronic ulcer of other part of right foot limited to breakdown of skin; L97.522 Non-pressure chronic ulcer of other part of left foot with fat layer exposed; L84 Corns and callosities; E11.36 Type 2 diabetes mellitus with diabetic cataract; E66.9 Obesity, unspecified; I10 Essential (primary) hypertension; J45.909 Unspecified asthma, uncomplicated; F17.200 Nicotine dependence, unspecified, uncomplicated; Z68.42 Body mass index [BMI] 45.0-49.9, adult ==

== ENCOUNTER → 2020-06-17 | Outpatient (CLI) | payer OTHER | LOC: M.WC 04:20 | PROVIDERS: ATTEND Emergency Medicine Undersea and Hyperbaric Medicine | DX: E11.621 Type 2 diabetes mellitus with foot ulcer (principal); L97.511 Non-pressure chronic ulcer of other part of right foot limited to breakdown of skin; L97.522 Non-pressure chronic ulcer of other part of left foot with fat layer exposed; E11.36 Type 2 diabetes mellitus with diabetic cataract; E66.9 Obesity, unspecified; I10 Essential (primary) hypertension; J45.909 Unspecified asthma, uncomplicated; F17.200 Nicotine dependence, unspecified, uncomplicated; Z68.42 Body mass index [BMI] 45.0-49.9, adult ==

== ENCOUNTER 2020-06-23 16:38 | Emergency (ER) | payer OTHER ==
[~2020-06-23] VITALS: Ht 203.2 cm; Wt 173.3 kg
[2020-06-23] MEDS ORDERED: ONGLYZA5 MG PO (16:54)
[2020-06-23 17:48] LABS: HEMATOCRIT 47.8 % (42.0-52.0); HEMOGLOBIN 17.1 gm/dL (14.0-18.0); MCH 33.2 pg (26.0-34.0); MCHC 35.7 g/dL (28.0-37.0); MCV 93.2 fL (80.0-100.0); MPV 8.4 fl. (7.2-11.1); NUCLEATED RBCS 0 /100WBC; PLATELET COUNT* 166 thou/uL (150-400); RBC 5.13 mil/uL (4.50-6.00); RDW-CV 14.1 % (10.5-14.5); WBC 10.2 thou/uL (4.0-11.0)
[2020-06-23 17:51] LABS: CALCIUM 8.3 mg/dL (8.5-10.1); CREATININE 1.8 mg/dL (0.6-1.3); POTASSIUM 3.5 mmol/L (3.5-5.1)
[2020-06-23 17:56] LABS: TOTAL BILIRUBIN 0.7 mg/dL (<0.1-1.0); TOTAL PROTEIN 7.1 g/dL (6.4-8.2); URIC ACID* 7.5 mg/dL (2.6-7.2)
[2020-06-23 18:16] LABS: ABSOLUTE BASOPHILS 0.1 thou/uL (0.0-0.2); ABSOLUTE EOSINOPHILS 0.1 thou/uL (0.0-0.7); ABSOLUTE LYMPHOCYTES 0.9 thou/uL (0.8-5.3); ABSOLUTE MONOCYTES 0.4 thou/uL (0.0-1.2); ABSOLUTE NEUTROPHILS 8.7 thou/uL (1.6-8.1)
[2020-06-23 18:17] LABS: PLATELET ESTIMATE ADEQUATE
[2020-06-23 18:53] LABS: ESR (SEDRATE) 20 mm/hr (0-20)
[2020-06-23] MEDS ORDERED: KEFLEX500 M1 PO (19:16)
[2020-06-23 19:31] VITALS: BP 109/67
--- NOTE | 2020-06-24 16:23 | EKG ---
[place] [address] ELECTROCARDIOGRAM REPORT Name: BOBBY MOORE Room: [facility]#: [id number] Admission: 06/23/20 Attend Phys: Discharge: 06/23/20 Date of : 60 Date of Service: 06/23/20 1725 Report #: [id number] THIS REPORT FOR: //name// [facility] ED Test Date: 2020-06-23 Test Time: 17:25:34 Pat Name: BOBBY MOORE Department: Room: Gender: Android Platform Developer: [place] : 1960 Requested By: Lázaro Mathis Order Number: [id number] Moise MD: Nacho Up Measurements Intervals [place] Rate: 78 P: 70 MD: 174 QRS: 62 QRSD: 103 T: 50 QT: 395 QTc: 450 Interpretive Statements Sinus rhythm Left atrial enlargement Baseline wander in lead(s) V5,V6 Compared to ECG 06/26/2016 14:33:55 No significant changes Electronically Signed On 06-24-2020 16:23:31 CDT by Nacho Up [email or web address] <ELECTRONICALLY SIGNED> By: Nacho pU MD, [facility] 06/24/20 1623 1725 1725 Ncaho Up MD, [facility] /EPI
== END 2020-06-23 19:32 | disposition home or self-care (01) ==
LOC: M.ERS 16:38
PROVIDERS: Physician Assistant
DX: L03.115 Cellulitis of right lower limb (principal); E11.9 Type 2 diabetes mellitus without complications; J45.909 Unspecified asthma, uncomplicated; I10 Essential (primary) hypertension; E66.9 Obesity, unspecified; Z86.14 Personal history of Methicillin resistant Staphylococcus aureus infection; Z88.5 Allergy status to narcotic agent; Z79.899 Other long term (current) drug therapy

== ENCOUNTER 2020-06-25 15:40 | Emergency (ER) | payer OTHER ==
[~2020-06-25] VITALS: Ht 203.2 cm; Wt 171.5 kg
[~2020-06-25 15:40] MED LIST changes: +KEFLEX500 M1 PO; +ONGLYZA5 MG PO
[2020-06-25] MEDS ORDERED: CIPROFLOXIN HC2.5 M1 OPHTHALMIC (16:52)
[2020-06-25] MEDS ORDERED: BACTRIM DS TAB1 EACH PO (16:52)
[2020-06-25 16:59] VITALS: BP 155/75
== END 2020-06-25 16:59 | disposition home or self-care (01) ==
LOC: M.ERS 15:40
DX: L03.115 Cellulitis of right lower limb (principal); H10.9 Unspecified conjunctivitis; E11.9 Type 2 diabetes mellitus without complications; J45.909 Unspecified asthma, uncomplicated; I10 Essential (primary) hypertension; E66.9 Obesity, unspecified; Z88.5 Allergy status to narcotic agent; Z79.899 Other long term (current) drug therapy; Z86.14 Personal history of Methicillin resistant Staphylococcus aureus infection

== ENCOUNTER → 2020-07-01 | Outpatient (CLI) | payer OTHER ==
[~2020-07-01] MED LIST changes: +CIPROFLOXIN HC2.5 M1 OPHTHALMIC
== END ==
LOC: M.WC 03:59
PROVIDERS: ATTEND Emergency Medicine Undersea and Hyperbaric Medicine
DX: E11.621 Type 2 diabetes mellitus with foot ulcer (principal); L97.511 Non-pressure chronic ulcer of other part of right foot limited to breakdown of skin; L97.522 Non-pressure chronic ulcer of other part of left foot with fat layer exposed; L03.115 Cellulitis of right lower limb; E11.36 Type 2 diabetes mellitus with diabetic cataract; E66.9 Obesity, unspecified; I10 Essential (primary) hypertension; J45.909 Unspecified asthma, uncomplicated; F17.200 Nicotine dependence, unspecified, uncomplicated; Z68.42 Body mass index [BMI] 45.0-49.9, adult

== ENCOUNTER → 2020-07-08 | Outpatient (CLI) | payer OTHER | LOC: M.WC 04:00 | PROVIDERS: ATTEND Family Medicine | DX: E11.621 Type 2 diabetes mellitus with foot ulcer (principal); L97.512 Non-pressure chronic ulcer of other part of right foot with fat layer exposed; L03.115 Cellulitis of right lower limb; E11.36 Type 2 diabetes mellitus with diabetic cataract; E66.9 Obesity, unspecified; I10 Essential (primary) hypertension; J45.909 Unspecified asthma, uncomplicated; F17.200 Nicotine dependence, unspecified, uncomplicated; Z68.42 Body mass index [BMI] 45.0-49.9, adult ==

== ENCOUNTER → 2020-07-15 | Outpatient (CLI) | payer OTHER | LOC: M.WC 03:30 | PROVIDERS: ATTEND Emergency Medicine Undersea and Hyperbaric Medicine | DX: E11.621 Type 2 diabetes mellitus with foot ulcer (principal); L97.511 Non-pressure chronic ulcer of other part of right foot limited to breakdown of skin; L97.521 Non-pressure chronic ulcer of other part of left foot limited to breakdown of skin; L84 Corns and callosities; L03.115 Cellulitis of right lower limb; E11.36 Type 2 diabetes mellitus with diabetic cataract; I10 Essential (primary) hypertension; E66.9 Obesity, unspecified; J45.909 Unspecified asthma, uncomplicated; F17.200 Nicotine dependence, unspecified, uncomplicated; Z68.42 Body mass index [BMI] 45.0-49.9, adult ==

== ENCOUNTER → 2020-07-22 | Outpatient (CLI) | payer OTHER | LOC: M.WC 05:05 | PROVIDERS: ATTEND Emergency Medicine Undersea and Hyperbaric Medicine | DX: E11.621 Type 2 diabetes mellitus with foot ulcer (principal); L97.511 Non-pressure chronic ulcer of other part of right foot limited to breakdown of skin; L97.521 Non-pressure chronic ulcer of other part of left foot limited to breakdown of skin; L84 Corns and callosities; L03.115 Cellulitis of right lower limb; E66.9 Obesity, unspecified; E11.36 Type 2 diabetes mellitus with diabetic cataract; I10 Essential (primary) hypertension; J45.909 Unspecified asthma, uncomplicated; F17.200 Nicotine dependence, unspecified, uncomplicated; Z68.42 Body mass index [BMI] 45.0-49.9, adult ==

== ENCOUNTER → 2020-07-29 | Outpatient (CLI) | payer OTHER | LOC: M.WC 05:08 | PROVIDERS: ATTEND Emergency Medicine Undersea and Hyperbaric Medicine | DX: E11.621 Type 2 diabetes mellitus with foot ulcer (principal); L97.511 Non-pressure chronic ulcer of other part of right foot limited to breakdown of skin; L97.521 Non-pressure chronic ulcer of other part of left foot limited to breakdown of skin; L03.115 Cellulitis of right lower limb; E11.36 Type 2 diabetes mellitus with diabetic cataract; E66.9 Obesity, unspecified; I10 Essential (primary) hypertension; J45.909 Unspecified asthma, uncomplicated; F17.200 Nicotine dependence, unspecified, uncomplicated; Z68.42 Body mass index [BMI] 45.0-49.9, adult ==

== ENCOUNTER → 2020-08-05 | Outpatient (CLI) | payer OTHER | LOC: M.WC 05:34 | PROVIDERS: ATTEND Emergency Medicine Undersea and Hyperbaric Medicine | DX: E11.621 Type 2 diabetes mellitus with foot ulcer (principal); L97.522 Non-pressure chronic ulcer of other part of left foot with fat layer exposed; L97.511 Non-pressure chronic ulcer of other part of right foot limited to breakdown of skin; L84 Corns and callosities; L03.115 Cellulitis of right lower limb; E11.36 Type 2 diabetes mellitus with diabetic cataract; E66.9 Obesity, unspecified; I10 Essential (primary) hypertension; J45.909 Unspecified asthma, uncomplicated; F17.200 Nicotine dependence, unspecified, uncomplicated; Z68.42 Body mass index [BMI] 45.0-49.9, adult ==

== ENCOUNTER → 2020-08-12 | Outpatient (CLI) | payer OTHER ==
[~2020-08-12] MED LIST changes: +LOSARTAN POTAS100 MG PO; +SYMBICORT160 MCG/4. INH
== END ==
LOC: M.LAB 13:36
PROVIDERS: ATTEND Orthopaedic Surgery
DX: Z01.812 Encounter for preprocedural laboratory examination (principal); Z20.828 Contact with and (suspected) exposure to other viral communicable diseases; E11.621 Type 2 diabetes mellitus with foot ulcer

== ENCOUNTER → 2020-08-12 | Outpatient (CLI) | payer OTHER | LOC: M.WC 10:05 | PROVIDERS: ATTEND Emergency Medicine Undersea and Hyperbaric Medicine | DX: E11.621 Type 2 diabetes mellitus with foot ulcer (principal); L97.512 Non-pressure chronic ulcer of other part of right foot with fat layer exposed; L97.521 Non-pressure chronic ulcer of other part of left foot limited to breakdown of skin; L03.115 Cellulitis of right lower limb; L84 Corns and callosities; E66.9 Obesity, unspecified; H26.9 Unspecified cataract; I10 Essential (primary) hypertension; J45.909 Unspecified asthma, uncomplicated; F17.200 Nicotine dependence, unspecified, uncomplicated; Z68.42 Body mass index [BMI] 45.0-49.9, adult ==

== ENCOUNTER 2020-08-15 06:04 | Observation (INO) | payer OTHER ==
[~2020-08-15] VITALS: Ht 203.2 cm; Wt 172.4 kg
--- NOTE | ~2020-08-15 | OP ---
[address] [address] OPERATIVE REPORT Name: BOBBY MOORE Room: [address] M.Lucio.#: [id number] Admission: 08/15/20 Attend Phys: Loyda Valencia DO Discharge: Date of : 60 Report #: [id number] THIS REPORT FOR: //name// cc: Samuel Felder Bradley L. DO ~ CC: Loyda Felder DATE OF SERVICE: 08/15/2020 This is Dede Gaitan DO, for Loyda Valencia DO PREOPERATIVE DIAGNOSES: 1. Left foot equinus contracture. 2. Chronic left plantar first metatarsal diabetic foot ulcer. POSTPROCEDURE DIAGNOSES: 1. Left foot equinus contracture. 2. Chronic left plantar first metatarsal diabetic foot ulcer. PROCEDURE PERFORMED: 1. Endoscopic left gastrocnemius recession. 2. Left first metatarsal dorsiflexion osteotomy. 3. Physician-guided fluoroscopy, less than 1 hour. SURGEON: Loyda Valencia DO BLISS PRESS OPERATOR: Dede Gaitan DO, and Todd Wright DO ANESTHESIA: General and local. ESTIMATED BLOOD LOSS: 10 mL. ANTIBIOTICS: 3 grams IV Ancef preoperatively. TOURNIQUET: Approximately 45 minutes at 250 mmHg. DRAINS: None. SPECIMENS: None. COMPLICATIONS: None. DISPOSITION: Stable to PACU and Med/Surg floor for 24 hours of IV antibiotics and then discharged home. [address] [address] OPERATIVE REPORT Name: BOBBY MOORE Room: [address] Sandie#: [id number] Admission: 08/15/20 Attend Phys: Loyda Valencia DO Discharge: Date of : 60 Report #: [id number] INDICATIONS OF PROCEDURE: The patient is a 59-year-old male, who has had a chronic left plantar first metatarsal head diabetic foot ulcer that has been previously treated by Podiatry. He has had chronic wound healing issues and his information clerk recommended that he follow up in the outpatient orthopedic clinic for further evaluation and treatment, including proceeding with surgical intervention. The wound is located over the first metatarsal head and the patient did have an equinus contracture with being unable to achieve neutral dorsiflexion of the left foot due to the chronic nature of his diabetic foot ulcer and equinus contracture, we recommended proceeding with surgical intervention in the form of an endoscopic gastrocnemius recession as well as a first metatarsal dorsiflexion osteotomy. The risks, benefits, complications, alternatives to procedure were thoroughly discussed with the patient. He accepted the risks and wished to proceed. We did discuss preoperatively that he will stay in the hospital for 24 hours of IV antibiotics before discharging home as he does have a history of MRSA infections and is diabetic. The patient understood and agreed with the above plan and he wished to proceed. DESCRIPTION OF PROCEDURE: The patient was seen in the preoperative suite. The operative extremity was marked by the operative surgeon. Everyone in the preoperative suite was in agreement on correct side, site, patient, and procedure. The patient was then transported to the operative suite and transferred over to a well-padded operating table in supine position. The patient was given the benefit of general anesthesia and IV antibiotics were administered, which were 3 grams of IV Ancef. A well-padded tourniquet was placed on the left upper leg; that was inflated for a total of 45 minutes at 250 mmHg. The RA pump was then placed under the left hip and a bone foam was placed under the left lower extremity. The left lower extremity was then scrubbed with a chlorhexidine scrub. The left lower extremity was then prepped and draped in the typical sterile fashion. A timeout was performed that confirmed correct side, site, patient, and procedure. Everyone in the operative suite was in agreement. The procedure began by exsanguinating the left lower extremity with an Esmarch and tourniquet was inflated. The gastrocnemius musculotendinous junction was localized on the medial aspect of the left lower leg. A skin marker was utilized to draw out a longitudinal incision at the level of the musculotendinous junction. Incision was made with a scalpel through skin and subcutaneous tissue. The endoscopic cannula was then passed superficial to the gastrocnemius fascia across to the lateral aspect of the lower leg. A roughly 1-cm incision was made over the lateral aspect of the lower leg and the cannula was completely passed through. Two Q-tips were then used to clear the tract of the endoscopic cannula. The arthroscope was then inserted into the cannula and confirmed that we were in correct position to perform the gastrocnemius recession. An arthroscopic blade was then passed through the lateral portal and the lateral half of the gastrocnemius fascia was incised. The blade and camera were then removed. The camera was inserted through the [place] [address] OPERATIVE REPORT Name: BOBBY MOORE [id number] Admission: 08/15/20 Attend Phys: Loyda Valencia DO Discharge: Date of : 60 Report #: [id number] blade was inserted through the medial portal and the medial half of the gastrocnemius fascia was resected. Final arthroscopic images demonstrated full release of the gastrocnemius. We then turned our attention to the first metatarsal dorsiflexion osteotomy. Under fluoroscopic guidance, a longitudinal incision was drawn out over the [id number] first metatarsal shaft and our osteotomy site was marked on the skin. Incision was made with a scalpel down through skin, subcutaneous tissue and down to bone. We were careful to protect all neurovascular structures and hemostasis was achieved with electrocautery. Medial and lateral periosteal flaps were then developed. Under fluoroscopic guidance, we determined the correct osteotomy site. A sagittal saw was then used to perform the initial osteotomy leaving a small plantar hinge to allow for dorsiflexion. We then used a sagittal saw to perform a closing wedge osteotomy just proximal to the first osteotomy. The edges of the osteotomy were smoothed out with a sagittal saw as well as a rongeur. Reduction of the osteotomy was performed and excellent correction of his first metatarsal plantarflexion was confirmed by direct visualization as well as under C-arm imaging, both AP and lateral. The osteotomy was thoroughly irrigated with normal saline. We then turned our attention to placement of the Arthrex staple. The staple guide was then placed over the medial aspect of the first metatarsal. The 2 drill holes were drilled with the appropriate-sized drill bit on power, and the Arthrex 20 x 15-mm staple was then malleted into place. The guide was removed and the staple was malleted into place with the tamp. The staple was confirmed to be in correct position and excellent reduction of the osteotomy confirmed on AP and lateral fluoroscopic imaging. The osteotomy was very stable with no gross motion with stress. The dorsiflexion osteotomy demonstrated correction of his plantarflexion deformity. Final fluoroscopic images were taken and saved. All 3 incisions were thoroughly irrigated with normal saline. Subcutaneous closure was performed with 2-0 Vicryl in interrupted fashion. The dorsal first metatarsal skin incision was closed with a 3-0 running nylon suture and the 2 endoscopic portals were closed with 3-0 nylon in an interrupted fashion. A 40 mL of local anesthetic were injected into the incisions. The skin was cleaned with a wet-to-dry dressing. The incisions were dressed with Xeroform, 4 x 4s, ABD, Kerlix, soft roll, a posterior slab splint and an Dex wrap. The patient was awoken from general anesthesia and transported to PACU in stable condition. All counts were correct x 2. I attest that Dr. Loyda Valencia DO, was present throughout all critical aspects of this procedure. POSTOPERATIVE CARE: The patient will be transferred to the Med/Surg floor for 24 hours of IV antibiotics. He will have analgesics as needed. He will be toe-touch weightbearing to his left lower extremity. We will have therapy work with the patient on ambulation training with a walker. He will maintain the splint clean, dry and intact. He will receive 2 doses of 1 [place] [address] OPERATIVE REPORT Name: BOBBY MOORE Room: [address] Sandie#: [id number] Admission: 08/15/20 Attend Phys: Loyda Valencia DO Discharge: Date of : 60 Report #: [id number] q. 12 hours. Once the patient has finished his 2 doses of IV antibiotics, he will be discharged home. He will be on a carb-controlled diet as he is diabetic. We encouraged the patient to call with any questions or concerns. By: 1003 [id number] Valencia DO /tere
[2020-08-15 06:50] LABS: HEMATOCRIT 44.9 % (42.0-52.0); HEMOGLOBIN 15.2 gm/dL (14.0-18.0); MCH 31.7 pg (26.0-34.0); MCHC 33.8 g/dL (28.0-37.0); MCV 93.9 fL (80.0-100.0); MPV 7.9 fl. (7.2-11.1); RBC 4.78 mil/uL (4.50-6.00); RDW-CV 14.6 % (10.5-14.5); WBC 11.8 thou/uL (4.0-11.0)
[2020-08-15 06:57] LABS: CALCIUM 8.6 mg/dL (8.5-10.1); CREATININE 1.2 mg/dL (0.6-1.3); POTASSIUM 3.9 mmol/L (3.5-5.1)
[2020-08-15 07:18] VITALS: BP 134/77
[2020-08-15 16:16] VITALS: BP 115/60
[2020-08-15 20:00] VITALS: BP 114/61
[2020-08-16 00:23] VITALS: BP 120/65
[2020-08-16 04:00] VITALS: BP 110/58
[2020-08-16 08:03] VITALS: BP 114/64
[2020-08-16] MEDS ORDERED: PAIN RELIEF TA1 EACH PO (08:40)
[2020-08-16] MEDS ORDERED: NORCO 10-325 T1 EACH (08:45)
[2020-08-16 11:23] VITALS: BP 114/64
[2020-08-16 11:28] VITALS: BP 105/52
[2020-08-16] MEDS ORDERED: NORCO 10-325 T1 EACH PO (11:33)
[2020-08-16 12:07] VITALS: BP 114/64
== END 2020-08-16 12:18 | disposition home or self-care (01) ==
LOC: M.TBA 06:04 → M.ORTHSURG 09:13
PROVIDERS: ADMIT Orthopaedic Surgery; ATTEND Orthopaedic Surgery
DX: M24.575 Contracture, left foot (principal); Q66.02 Congenital talipes equinovarus, left foot; L97.529 Non-pressure chronic ulcer of other part of left foot with unspecified severity; E11.621 Type 2 diabetes mellitus with foot ulcer; Z79.899 Other long term (current) drug therapy

== ENCOUNTER → 2020-08-19 | Outpatient (CLI) | payer OTHER ==
[~2020-08-19] MED LIST changes: +NORCO 10-325 T1 EACH; +NORCO 10-325 T1 EACH PO; +PAIN RELIEF TA1 EACH PO
== END ==
LOC: M.WC 00:38
PROVIDERS: ATTEND Emergency Medicine Undersea and Hyperbaric Medicine
DX: E11.621 Type 2 diabetes mellitus with foot ulcer (principal); L97.511 Non-pressure chronic ulcer of other part of right foot limited to breakdown of skin; L97.521 Non-pressure chronic ulcer of other part of left foot limited to breakdown of skin; L03.115 Cellulitis of right lower limb; L84 Corns and callosities; E11.36 Type 2 diabetes mellitus with diabetic cataract; E66.9 Obesity, unspecified; I10 Essential (primary) hypertension; J45.909 Unspecified asthma, uncomplicated; F17.200 Nicotine dependence, unspecified, uncomplicated; Z68.42 Body mass index [BMI] 45.0-49.9, adult

== ENCOUNTER → 2020-08-26 | Outpatient (CLI) | payer OTHER | LOC: M.WC 08:50 | PROVIDERS: ATTEND Emergency Medicine Undersea and Hyperbaric Medicine | DX: E11.621 Type 2 diabetes mellitus with foot ulcer (principal); L97.512 Non-pressure chronic ulcer of other part of right foot with fat layer exposed; L97.522 Non-pressure chronic ulcer of other part of left foot with fat layer exposed; L03.115 Cellulitis of right lower limb; L84 Corns and callosities; E11.36 Type 2 diabetes mellitus with diabetic cataract; E66.9 Obesity, unspecified; I10 Essential (primary) hypertension; J45.909 Unspecified asthma, uncomplicated; F17.200 Nicotine dependence, unspecified, uncomplicated; Z68.42 Body mass index [BMI] 45.0-49.9, adult ==

== ENCOUNTER → 2020-09-02 | Outpatient (CLI) | payer OTHER | LOC: M.WC 12:41 | PROVIDERS: ATTEND Emergency Medicine Undersea and Hyperbaric Medicine | DX: E11.621 Type 2 diabetes mellitus with foot ulcer (principal); L97.512 Non-pressure chronic ulcer of other part of right foot with fat layer exposed; L03.115 Cellulitis of right lower limb; L84 Corns and callosities; E11.36 Type 2 diabetes mellitus with diabetic cataract; E66.9 Obesity, unspecified; I10 Essential (primary) hypertension; J45.909 Unspecified asthma, uncomplicated; F17.200 Nicotine dependence, unspecified, uncomplicated; Z68.42 Body mass index [BMI] 45.0-49.9, adult ==

== ENCOUNTER → 2020-09-05 | Outpatient (CLI) | payer OTHER | LOC: M.WC 11:00 | PROVIDERS: ATTEND Emergency Medicine Undersea and Hyperbaric Medicine | DX: E11.621 Type 2 diabetes mellitus with foot ulcer (principal); L97.512 Non-pressure chronic ulcer of other part of right foot with fat layer exposed; L84 Corns and callosities; L03.115 Cellulitis of right lower limb; E11.36 Type 2 diabetes mellitus with diabetic cataract; E66.9 Obesity, unspecified; I10 Essential (primary) hypertension; J45.909 Unspecified asthma, uncomplicated; F17.200 Nicotine dependence, unspecified, uncomplicated; Z68.42 Body mass index [BMI] 45.0-49.9, adult ==

== ENCOUNTER → 2020-09-09 | Outpatient (CLI) | payer OTHER | LOC: M.WC 08:41 | PROVIDERS: ATTEND Emergency Medicine Undersea and Hyperbaric Medicine | DX: E11.621 Type 2 diabetes mellitus with foot ulcer (principal); L97.512 Non-pressure chronic ulcer of other part of right foot with fat layer exposed; L03.115 Cellulitis of right lower limb; B95.61 Methicillin susceptible Staphylococcus aureus infection as the cause of diseases classified elsewhere; L84 Corns and callosities; M79.672 Pain in left foot; J45.909 Unspecified asthma, uncomplicated; I10 Essential (primary) hypertension; E11.36 Type 2 diabetes mellitus with diabetic cataract; E66.9 Obesity, unspecified; F17.290 Nicotine dependence, other tobacco product, uncomplicated; Z68.42 Body mass index [BMI] 45.0-49.9, adult; Z86.14 Personal history of Methicillin resistant Staphylococcus aureus infection ==

== ENCOUNTER → 2020-09-16 | Outpatient (CLI) | payer OTHER | LOC: M.WC 09:36 | PROVIDERS: ATTEND Emergency Medicine Undersea and Hyperbaric Medicine | DX: E11.621 Type 2 diabetes mellitus with foot ulcer (principal); L97.512 Non-pressure chronic ulcer of other part of right foot with fat layer exposed; L03.115 Cellulitis of right lower limb; L84 Corns and callosities; E11.36 Type 2 diabetes mellitus with diabetic cataract; E66.9 Obesity, unspecified; I10 Essential (primary) hypertension; J45.909 Unspecified asthma, uncomplicated; F17.200 Nicotine dependence, unspecified, uncomplicated; Z68.42 Body mass index [BMI] 45.0-49.9, adult ==

== ENCOUNTER → 2020-09-23 | Outpatient (CLI) | payer OTHER | LOC: M.WC 12:38 | PROVIDERS: ATTEND Podiatrist Foot & Ankle Surgery | DX: E11.621 Type 2 diabetes mellitus with foot ulcer (principal); L97.512 Non-pressure chronic ulcer of other part of right foot with fat layer exposed; L97.522 Non-pressure chronic ulcer of other part of left foot with fat layer exposed; E11.622 Type 2 diabetes mellitus with other skin ulcer; L97.821 Non-pressure chronic ulcer of other part of left lower leg limited to breakdown of skin; L03.115 Cellulitis of right lower limb; L84 Corns and callosities; E11.36 Type 2 diabetes mellitus with diabetic cataract; E66.9 Obesity, unspecified; I10 Essential (primary) hypertension; J45.909 Unspecified asthma, uncomplicated; F17.200 Nicotine dependence, unspecified, uncomplicated; Z68.42 Body mass index [BMI] 45.0-49.9, adult ==

== ENCOUNTER → 2020-09-30 | Outpatient (CLI) | payer OTHER | LOC: M.WC 13:00 | PROVIDERS: ATTEND Emergency Medicine Undersea and Hyperbaric Medicine | DX: E11.621 Type 2 diabetes mellitus with foot ulcer (principal); L97.512 Non-pressure chronic ulcer of other part of right foot with fat layer exposed; E11.622 Type 2 diabetes mellitus with other skin ulcer; L97.822 Non-pressure chronic ulcer of other part of left lower leg with fat layer exposed; L84 Corns and callosities; E11.36 Type 2 diabetes mellitus with diabetic cataract; J45.909 Unspecified asthma, uncomplicated; I10 Essential (primary) hypertension; F17.290 Nicotine dependence, other tobacco product, uncomplicated; E66.9 Obesity, unspecified; Z68.42 Body mass index [BMI] 45.0-49.9, adult; Z86.14 Personal history of Methicillin resistant Staphylococcus aureus infection ==

== ENCOUNTER → 2020-10-07 | Outpatient (CLI) | payer OTHER ==
[~2020-10-07] MED LIST changes: +STATIN DRUG
== END ==
LOC: M.WC 12:41
PROVIDERS: ATTEND Emergency Medicine Undersea and Hyperbaric Medicine
DX: E11.621 Type 2 diabetes mellitus with foot ulcer (principal); L97.512 Non-pressure chronic ulcer of other part of right foot with fat layer exposed; E11.622 Type 2 diabetes mellitus with other skin ulcer; L97.822 Non-pressure chronic ulcer of other part of left lower leg with fat layer exposed; L84 Corns and callosities; E11.36 Type 2 diabetes mellitus with diabetic cataract; J45.909 Unspecified asthma, uncomplicated; I10 Essential (primary) hypertension; F17.290 Nicotine dependence, other tobacco product, uncomplicated; E66.9 Obesity, unspecified; Z68.42 Body mass index [BMI] 45.0-49.9, adult; Z86.14 Personal history of Methicillin resistant Staphylococcus aureus infection

== ENCOUNTER → 2020-10-13 | Outpatient (CLI) | payer OTHER | LOC: M.LAB 08:24 | PROVIDERS: ATTEND Orthopaedic Surgery | DX: Z01.812 Encounter for preprocedural laboratory examination (principal); Z20.828 Contact with and (suspected) exposure to other viral communicable diseases; E11.622 Type 2 diabetes mellitus with other skin ulcer ==

== ENCOUNTER 2020-10-16 07:31 | Observation (INO) | payer OTHER ==
[~2020-10-16] VITALS: Ht 203.2 cm; Wt 167.8 kg
[2020-10-16 08:36] LABS: HEMATOCRIT 47.6 % (42.0-52.0); MCH 31.8 pg (26.0-34.0); MCHC 33.6 g/dL (28.0-37.0); MCV 94.6 fL (80.0-100.0); MPV 8.2 fl. (7.2-11.1); RBC 5.03 mil/uL (4.50-6.00); RDW-CV 14.3 % (10.5-14.5); WBC 12.8 thou/uL (4.0-11.0)
[2020-10-16 08:41] LABS: CALCIUM 9.2 mg/dL (8.5-10.1); CREATININE 1.4 mg/dL (0.6-1.3); POTASSIUM 4.3 mmol/L (3.5-5.1)
[2020-10-16 13:00] VITALS: BP 107/62
--- NOTE | 2020-10-16 16:46 | NUR ---
PT ALERT AND ORIENTED X 4. PT SLEEPY AT TIMES. AROUSES EASILY. PT REMAINS ON 5L O2. RESPS EVEN AND UNLABORED. CALL LIGHT WITHIN REACH. IV FLUIDS INFUSING. RIGHT FOOT IN REN WRAP WITH ICE PACK.
[2020-10-16 16:50] VITALS: BP 110/56
--- NOTE | 2020-10-16 18:11 | NUR ---
REPORT RECEIVED FROM RODOLFO MCNEILL. PATIENT NOTED TO BE SLEEPING WHEN ROUNDED ON. 5L NC IN PLACE WITH CAPNO. IVF INFUSING. CALL LIGHT WITHIN REACH.
[2020-10-16 21:32] VITALS: BP 116/54
[2020-10-16 23:56] VITALS: BP 114/57
[2020-10-17 04:00] VITALS: BP 120/60
--- NOTE | 2020-10-17 04:49 | NUR ---
PT REPORTS SOME PAIN BUT TOLERABLE AND DID NOT WANT MEDS. NO NAUSEA OR VOMITING. ALERT AND ORIENTED. WB LIMITATIONS. IS ABLE TO USE URINAL IN BED. KEPT LEG ELEVATED/ICE BAGS. RECEIVED MEDS SCHEDULED. HE IS TOLERATING FOOD/DRINKS WELL AND APPEARS TO BE DOING VERY WELL
[2020-10-17 08:03] VITALS: BP 104/60
[2020-10-17] MEDS ORDERED: NORCO 5-325 TA1 EAC2 PO (09:19)
[2020-10-17] MEDS ORDERED: ASPIRIN325 PO (09:19)
[2020-10-17 09:31] VITALS: BP 104/60
--- NOTE | 2020-10-17 09:38 | NUR ---
HOME HEALTH ORDERED AND OFFERED. PATIENT DECLINED HOME HEALTH.
--- NOTE | 2020-10-17 11:40 | NUR ---
PATIENT DISCHARGED FROM UNIT AT 1135. ALERT AND ORIENTED X 4. VITAL SIGNS STABLE ON ROOM AIR. UP WITH ASSISTANCE AND GETTING AROUND PER KNEE SCOOTER. IV DISCONTINUED. DENIES PAIN AND NAUSEA AT THIS TIME. DISCHARGE INSTRUCTIONS, MEDICATION INFORMATION, AND SCRIPTS GIVEN TO PATIENT. LEFT WITH ALL BELONGINGS. PATIENT LEFT WITH VIA VAN.
[2020-10-17 11:42] VITALS: BP 104/60
--- NOTE | 2020-10-20 21:11 | OP ---
[address] [address] OPERATIVE REPORT Name: BOBBY MOORE Room: [address] Mona Hooper#: [id number] Admission: 10/16/20 Attend Phys: Shari Mcginnis Discharge: 10/17/20 Date of : 60 Report #: [id number] THIS REPORT FOR: cc: Samuel Felder Bradley L. DO ~ Loyda Valencia DO DATE OF SERVICE: 10/16/2020 PREOPERATIVE DIAGNOSIS: Right plantar first metatarsal diabetic foot ulcer. POSTOPERATIVE DIAGNOSIS: Right plantar first metatarsal diabetic foot ulcer. PROCEDURE: 1. Right endoscopic gastrocnemius recession. 2. Right first metatarsal dorsiflexion osteotomy. 3. Intraoperative physician-guided fluoroscopy less than 1 hour. SURGEON: Loyda Valencia DO GAMBLING SUPERVISOR: Oleg Duron DO SECOND BRICK OFFBEARER: Raúl Chávez DO ANESTHESIA: General. Approximately 30 mL mixture of 0.5% Marcaine and 1% lidocaine. ESTIMATED BLOOD LOSS: 25 mL. SPECIMENS: None. DRAINS: None. COMPLICATIONS: None. CONDITION: Stable. DISPOSITION: PACU to Med/Surg for observation and 24 hours of IV antibiotics. PREOPERATIVE ANTIBIOTICS: 3 grams Ancef IV. TOURNIQUET: Approximately 30 minutes at 250 mmHg. IMPLANTS: Arthrex nitinol staple x 1. INDICATIONS FOR PROCEDURE: The patient is a very pleasant 59-year-old male who [place] [address] [address] OPERATIVE REPORT Name: BOBBY MOORE Room: [address] Mona Hooper#: [id number] Admission: 10/16/20 Attend Phys: Shari Mcginnis Discharge: 10/17/20 Date of : 60 Report #: [id number] has had ongoing right foot pain and diabetic plantar foot ulcer under his first metatarsal head for approximately last 6-7 months. He failed conservative therapies including wound care, activity modification, shoewear modification, total contact casting. Despite these measures, he continued to have significant right foot pain as well as a recurring ulcer. On physical exam, he is noted to have a positive Silfverskiold test as well as a plantar flexed first metatarsal; therefore, I did recommend a right endoscopic gastrocnemius recession and right first metatarsal dorsiflexion osteotomy. The benefits, risks, complications, and alternatives of this procedure were discussed with the patient in detail. These include but are not limited to bleeding, surgical site infection, neurovascular compromise, malunion, nonunion, hardware failure, continued pain, need for further surgery, recurrence of the ulcer, DVT, PE as well as the inherent risks of anesthesia. The patient understands these risks and agreeable to proceed. Consent was signed in the preoperative holding area and on the chart at time of surgery, operative site was marked. DESCRIPTION OF PROCEDURE: The patient was brought to the operating room and placed supine on the operating table. He was administered general anesthetic. A well-padded tourniquet was placed on the proximal portion of the right thigh. Right lower extremity was then sterilely prepped with ChloraPrep and allowed to dry for 3 minutes. He was then draped freely in the usual fashion. A timeout was performed confirming correct patient, site and procedure. Surgical site almaraz were identified, and all in the room agreed. The procedure began with exsanguination of right lower extremity with an Esmarch and inflation of tourniquet to 250 mmHg. Next, we identified the distal border of the gastroc so we went approximately 2 cm distal and 1 cm anterior to the medial border of the gastroc. We exsanguinated the leg with an Esmarch and inflated the tourniquet to 250 mmHg. Next, an incision was made in this area. Dissection was carried through skin and subcutaneous tissues. The gastroc fascia was identified and blunt dissection was carried out to the lateral aspect of the leg. The cannula from the endoscopic gastroc recession kit was placed just superficial to the gastroc fascia. This was fully visualized. Several Q-Tips were used to clear soft tissue and blood from the camera head and from the cannula. After fully visualizing the gastrocnemius fascia, the endoscopic blade was used to perform a gastroc recession. This was resected across the entire gastroc fascia. The patient was noted to have increased dorsiflexion. After complete release, the endoscopic instruments were removed. We then turned our attention to the first metatarsal osteotomy. A proposed site for the osteotomy was localized with C-arm fluoroscopy. We then made a dorsal medial incision over the first metatarsal through skin and subcutaneous tissues. Hemostasis achieved with electrocautery. Care was taken to protect the dorsal medial cutaneous branch to the great toe. A subperiosteal dissection was carried out. First metatarsal was exposed. Next, utilizing a small oscillating saw as well as copious amounts of irrigation, a wedge was taken out of the dorsal aspect of the first metatarsal. This was then reduced and held into place manually. [place] [id number] OPERATIVE REPORT Name: BOBBY MOORE [address]#: [id number] Admission: 10/16/20 Attend Phys: Dustin PeeShari Powell Discharge: 10/17/20 Date of : 60 Report #: [id number] to have a more appropriate appearance to his forefoot with much less pressure off of the plantar skin at the first metatarsal head. Next, we utilized the appropriate drill bit and a guide, we drilled and then placed the nitinol staple across the osteotomy site and this was seated appropriately. There was noted to be excellent fixation. Final x-rays were taken, which confirmed appropriate reduction of the osteotomy site and a more dorsiflexed position of the first metatarsal head. Wounds were irrigated with normal saline. Subcutaneous tissues closed with 2-0 Vicryl suture and skin reapproximated with 3-0 nylon. Wounds were then dressed with Xeroform, 4 x 4s, ABD, soft roll and a well-padded posterior splint was applied. Tourniquet was let done at approximately 30 minutes. Local was injected around the incisions prior to dressings being placed. The patient tolerated the procedure well without complications, transferred to PACU in stable condition. All needle and sponge counts were correct x 2 and I was present throughout all pertinent decision making aspects of the case. <ELECTRONICALLY SIGNED> By: Loyda Valencia DO 10/20/201 1016 [id number] Valencia DO /nt
== END 2020-10-17 11:35 | disposition home or self-care (01) ==
LOC: M.ORTHSURG 07:31 → M.TBA 08:04 → M.ORTHSURG 08:04 → M.TBA 08:04 → M.ORTHSURG 10:49 → M.SUR 11:45 → EDSTATUS 11:46 → M.ORTHSURG 11:49 → M.3W 13:10
PROVIDERS: Orthopaedic Surgery; ADMIT Internal Medicine; ATTEND Internal Medicine
DX: E11.621 Type 2 diabetes mellitus with foot ulcer (principal); L97.419 Non-pressure chronic ulcer of right heel and midfoot with unspecified severity; E11.22 Type 2 diabetes mellitus with diabetic chronic kidney disease; I12.0 Hypertensive chronic kidney disease with stage 5 chronic kidney disease or end stage renal disease; N18.9 Chronic kidney disease, unspecified; N17.9 Acute kidney failure, unspecified; E66.01 Morbid (severe) obesity due to excess calories; Z68.43 Body mass index [BMI] 50.0-59.9, adult; Z79.4 Long term (current) use of insulin; Z79.899 Other long term (current) drug therapy

== ENCOUNTER → 2020-11-11 | Outpatient (CLI) | payer OTHER ==
[~2020-11-11] MED LIST changes: +ASPIRIN325 PO; +NORCO 5-325 TA1 EAC2 PO
== END ==
LOC: M.WC 12:17
PROVIDERS: ATTEND Emergency Medicine Undersea and Hyperbaric Medicine
DX: E11.621 Type 2 diabetes mellitus with foot ulcer (principal); L97.512 Non-pressure chronic ulcer of other part of right foot with fat layer exposed; L84 Corns and callosities; E11.36 Type 2 diabetes mellitus with diabetic cataract; I10 Essential (primary) hypertension; J45.909 Unspecified asthma, uncomplicated; F17.290 Nicotine dependence, other tobacco product, uncomplicated; E66.9 Obesity, unspecified; Z68.42 Body mass index [BMI] 45.0-49.9, adult; Z86.14 Personal history of Methicillin resistant Staphylococcus aureus infection

== ENCOUNTER → 2020-11-25 | Outpatient (CLI) | payer OTHER | LOC: M.WC 12:50 | PROVIDERS: ATTEND Emergency Medicine Undersea and Hyperbaric Medicine | DX: E11.621 Type 2 diabetes mellitus with foot ulcer (principal); L97.518 Non-pressure chronic ulcer of other part of right foot with other specified severity; L84 Corns and callosities; E11.36 Type 2 diabetes mellitus with diabetic cataract; I10 Essential (primary) hypertension; J45.909 Unspecified asthma, uncomplicated; E66.9 Obesity, unspecified; F17.290 Nicotine dependence, other tobacco product, uncomplicated; Z68.42 Body mass index [BMI] 45.0-49.9, adult; Z86.14 Personal history of Methicillin resistant Staphylococcus aureus infection ==

== ENCOUNTER 2021-03-28 20:33 | Emergency (ER) | payer OTHER ==
[~2021-03-28] VITALS: Ht 203.2 cm; Wt 170.1 kg
[2021-03-28 21:11] LABS: ABSOLUTE BASOPHILS 0.1 thou/uL (0.0-0.2); ABSOLUTE EOSINOPHILS 0.4 thou/uL (0.0-0.7); ABSOLUTE LYMPHOCYTES 1.3 thou/uL (0.8-5.3); ABSOLUTE MONOCYTES 0.6 thou/uL (0.0-1.2); ABSOLUTE NEUTROPHILS 11.2 thou/uL (1.6-8.1); BASOPHILS 0.5 %; HEMATOCRIT 46.5 % (42.0-52.0); HEMOGLOBIN 16.1 gm/dL (14.0-18.0); LYMPHOCYTES 9.8 %; MCH 32.7 pg (26.0-34.0); MCHC 34.5 g/dL (28.0-37.0); MCV 94.7 fL (80.0-100.0); MONOCYTES 4.5 %; MPV 8.3 fl. (7.2-11.1); NUCLEATED RBCS 0 /100WBC; PLATELET COUNT* 197 thou/uL (150-400); POLYS 82.2 %; RBC 4.92 mil/uL (4.50-6.00); RDW-CV 14.5 % (10.5-14.5); WBC 13.6 thou/uL (4.0-11.0)
[2021-03-28 21:45] LABS: CALCIUM 8.4 mg/dL (8.5-10.1); CREATININE 1.7 mg/dL (0.6-1.3); POTASSIUM 4.6 mmol/L (3.5-5.1)
[2021-03-28 21:50] LABS: ALBUMIN 2.8 g/dL (3.4-5.0); TOTAL BILIRUBIN 0.3 mg/dL (<0.1-1.0); TOTAL PROTEIN 6.8 g/dL (6.4-8.2)
[2021-03-28 22:16] LABS: URINE BILIRUBIN NEGATIVE (Negative); URINE BLOOD 2+ (Negative); URINE CLARITY HAZY; URINE COLOR YELLOW; URINE GLUCOSE-RANDOM TRACE (Negative); URINE KETONES NEGATIVE (Negative); URINE LEUKOCYTES-REFLEX NEGATIVE (Negative); URINE NITRITE-REFLEX NEGATIVE (Negative); URINE PROTEIN 3+ (Negative); URINE SPECIFIC GRAVITY 1.025 (1.005-1.030); URINE UROBILINOGEN 0.2 E.U./dl (0.2-1.0)
[2021-03-28 22:24] LABS: BACTERIA-REFLEX None Seen /HPF (None Seen); FINE GRANULAR CASTS 0-3 Few /LPF (None Seen); SQUAMOUS 4-10 Moderate /LPF (0-3); URINE RBC 3-10 Few /HPF (0-2); URINE WBC-REFLEX 0-5 Rare /HPF (0-5)
[2021-03-28] MEDS ORDERED: DIAZEPAM 5 MG5 MG PO (23:11)
[2021-03-28] MEDS ORDERED: HYDROCODON-ACE1 EAC7 PO (23:11)
[2021-03-28] MEDS ORDERED: TORADOL 10 MG T10 MG PO (23:11)
[2021-03-28 23:24] LABS: CRYSTALS None Seen /LPF (None Seen)
[2021-03-28 23:34] VITALS: BP 143/84
== END 2021-03-28 23:35 | disposition home or self-care (01) ==
LOC: M.ERS 20:33
PROVIDERS: Personal Emergency Response Attendant
DX: M54.5 Low back pain (principal); E11.9 Type 2 diabetes mellitus without complications; I10 Essential (primary) hypertension; J45.909 Unspecified asthma, uncomplicated; E66.9 Obesity, unspecified; Z68.41 Body mass index [BMI] 40.0-44.9, adult; Z88.5 Allergy status to narcotic agent; Z88.1 Allergy status to other antibiotic agents; Z86.14 Personal history of Methicillin resistant Staphylococcus aureus infection

== ENCOUNTER 2021-04-12 14:28 | Emergency (ER) | payer OTHER ==
[~2021-04-12] VITALS: Ht 203.2 cm; Wt 170.1 kg
[~2021-04-12 14:28] MED LIST changes: +DIAZEPAM 5 MG5 MG PO; +HYDROCODON-ACE1 EAC7 PO; +TORADOL 10 MG T10 MG PO
[2021-04-12] MEDS ORDERED: DOXYCYCLINE 10100 MG PO ×2 (14:47→14:59)
[2021-04-12 15:18] VITALS: BP 121/65
== END 2021-04-12 15:19 | disposition home or self-care (01) ==
LOC: M.ERS 14:28
DX: S91.302A Unspecified open wound, left foot, initial encounter (principal); E11.9 Type 2 diabetes mellitus without complications; I10 Essential (primary) hypertension; Z98.890 Other specified postprocedural states; Z79.899 Other long term (current) drug therapy; Z88.1 Allergy status to other antibiotic agents; Z88.5 Allergy status to narcotic agent; W22.8XXA Striking against or struck by other objects, initial encounter; Y93.89 Activity, other specified; Y92.89 Other specified places as the place of occurrence of the external cause; Y99.8 Other external cause status

== ENCOUNTER → 2021-04-14 | Outpatient (CLI) | payer OTHER ==
[~2021-04-14] MED LIST changes: +DOXYCYCLINE 10100 MG PO
== END ==
LOC: M.WC 07:39
PROVIDERS: ATTEND Emergency Medicine Undersea and Hyperbaric Medicine
DX: E11.621 Type 2 diabetes mellitus with foot ulcer (principal); L89.892 Pressure ulcer of other site, stage 2; L97.522 Non-pressure chronic ulcer of other part of left foot with fat layer exposed; E11.36 Type 2 diabetes mellitus with diabetic cataract; E66.9 Obesity, unspecified; I10 Essential (primary) hypertension; J45.909 Unspecified asthma, uncomplicated; F17.200 Nicotine dependence, unspecified, uncomplicated; Z68.39 Body mass index [BMI] 39.0-39.9, adult

== ENCOUNTER → 2021-04-21 | Outpatient (CLI) | payer OTHER | LOC: M.WC 10:03 | PROVIDERS: ATTEND Emergency Medicine Undersea and Hyperbaric Medicine | DX: E11.621 Type 2 diabetes mellitus with foot ulcer (principal); L89.892 Pressure ulcer of other site, stage 2; L97.522 Non-pressure chronic ulcer of other part of left foot with fat layer exposed; E11.36 Type 2 diabetes mellitus with diabetic cataract; E66.9 Obesity, unspecified; I10 Essential (primary) hypertension; J45.909 Unspecified asthma, uncomplicated; F17.200 Nicotine dependence, unspecified, uncomplicated; Z68.39 Body mass index [BMI] 39.0-39.9, adult ==

== ENCOUNTER → 2021-04-28 | Outpatient (CLI) | payer OTHER | LOC: M.WC 08:55 | PROVIDERS: ATTEND Emergency Medicine Undersea and Hyperbaric Medicine | DX: E11.621 Type 2 diabetes mellitus with foot ulcer (principal); L89.892 Pressure ulcer of other site, stage 2; L97.522 Non-pressure chronic ulcer of other part of left foot with fat layer exposed; L84 Corns and callosities; E11.36 Type 2 diabetes mellitus with diabetic cataract; E66.9 Obesity, unspecified; I10 Essential (primary) hypertension; J45.909 Unspecified asthma, uncomplicated; F17.200 Nicotine dependence, unspecified, uncomplicated; Z68.39 Body mass index [BMI] 39.0-39.9, adult ==

== ENCOUNTER → 2021-05-05 | Outpatient (CLI) | payer OTHER | LOC: M.WC 12:52 | PROVIDERS: ATTEND Emergency Medicine Undersea and Hyperbaric Medicine | DX: E11.621 Type 2 diabetes mellitus with foot ulcer (principal); L89.892 Pressure ulcer of other site, stage 2; L97.522 Non-pressure chronic ulcer of other part of left foot with fat layer exposed; L84 Corns and callosities; J45.909 Unspecified asthma, uncomplicated; I10 Essential (primary) hypertension; E11.36 Type 2 diabetes mellitus with diabetic cataract; E66.9 Obesity, unspecified; F17.290 Nicotine dependence, other tobacco product, uncomplicated; Z68.39 Body mass index [BMI] 39.0-39.9, adult; Z98.890 Other specified postprocedural states; Z79.899 Other long term (current) drug therapy ==

== ENCOUNTER → 2021-05-12 | Outpatient (CLI) | payer OTHER | LOC: M.WC 12:55 | PROVIDERS: ATTEND Emergency Medicine Undersea and Hyperbaric Medicine | DX: E11.621 Type 2 diabetes mellitus with foot ulcer (principal); L89.892 Pressure ulcer of other site, stage 2; L97.521 Non-pressure chronic ulcer of other part of left foot limited to breakdown of skin; L84 Corns and callosities; E11.36 Type 2 diabetes mellitus with diabetic cataract; H26.9 Unspecified cataract; E66.9 Obesity, unspecified; J45.909 Unspecified asthma, uncomplicated; I10 Essential (primary) hypertension; F17.290 Nicotine dependence, other tobacco product, uncomplicated; Z68.39 Body mass index [BMI] 39.0-39.9, adult ==

== ENCOUNTER → 2021-05-19 | Outpatient (CLI) | payer OTHER | LOC: M.WC 12:41 | PROVIDERS: ATTEND Emergency Medicine Undersea and Hyperbaric Medicine | DX: E11.621 Type 2 diabetes mellitus with foot ulcer (principal); L89.892 Pressure ulcer of other site, stage 2; L97.521 Non-pressure chronic ulcer of other part of left foot limited to breakdown of skin; L84 Corns and callosities; E11.36 Type 2 diabetes mellitus with diabetic cataract; H26.9 Unspecified cataract; E66.9 Obesity, unspecified; I10 Essential (primary) hypertension; J45.909 Unspecified asthma, uncomplicated; F17.290 Nicotine dependence, other tobacco product, uncomplicated; Z68.39 Body mass index [BMI] 39.0-39.9, adult ==

== ENCOUNTER → 2021-05-26 | Outpatient (CLI) | payer OTHER | LOC: M.WC 12:42 | PROVIDERS: ATTEND Emergency Medicine Undersea and Hyperbaric Medicine | DX: E11.621 Type 2 diabetes mellitus with foot ulcer (principal); L89.892 Pressure ulcer of other site, stage 2; L97.521 Non-pressure chronic ulcer of other part of left foot limited to breakdown of skin; L84 Corns and callosities; E11.36 Type 2 diabetes mellitus with diabetic cataract; H26.9 Unspecified cataract; E66.9 Obesity, unspecified; I10 Essential (primary) hypertension; J45.909 Unspecified asthma, uncomplicated; F17.290 Nicotine dependence, other tobacco product, uncomplicated; Z68.39 Body mass index [BMI] 39.0-39.9, adult ==

== ENCOUNTER → 2021-06-02 | Outpatient (CLI) | payer OTHER | LOC: M.WC 12:26 | PROVIDERS: ATTEND Emergency Medicine Undersea and Hyperbaric Medicine | DX: E11.621 Type 2 diabetes mellitus with foot ulcer (principal); L89.892 Pressure ulcer of other site, stage 2; L97.521 Non-pressure chronic ulcer of other part of left foot limited to breakdown of skin; L84 Corns and callosities; E11.36 Type 2 diabetes mellitus with diabetic cataract; H26.9 Unspecified cataract; E66.9 Obesity, unspecified; I10 Essential (primary) hypertension; J45.909 Unspecified asthma, uncomplicated; F17.290 Nicotine dependence, other tobacco product, uncomplicated; Z68.39 Body mass index [BMI] 39.0-39.9, adult ==